=== PATIENT | female | born 1965 | race American Indian/Alaskan Native ===

== ENCOUNTER 2017-05-04 23:17 | Emergency (ER) | payer MEDICAID, OTHER ==
[2017-05-05 01:15] LABS: CHLORIDE,CL 102 mmol/L (101-111); SODIUM,NA 135 mmol/L (135-145)
--- NOTE | 2017-05-05 01:31 | EDM.PDOC ---
ED HPI GENERAL MEDICAL PROBLEM - General Chief Complaint: General Stated Complaint: HURTING ALL OVER, SWOLLEN FACE/LEGS, WEAK Time Seen by Provider: 05/04/17 23:35 Source of Information: Reports: Patient History Limitations: Reports: No Limitations - History of Present Illness INITIAL COMMENTS - FREE TEXT/NARRATIVE: c/o generalized aches, swelling to face and lower extremities for past weeks. Was seen in clinic today for similar symptoms "but didn't do anything". Aleve changed to Naproxyn. Taking oxycodone for "female problems". Reported to RN ran out of Neurontin and cannot get refilled until . Right Generalized Pain Score (Numeric/FACES): 5 - Related Data Allergies Allergy/AdvReac Type Severity Reaction Status Date / Time No Known Allergies Allergy Verified 05/04/17 23:34 Home Meds: Home Meds Gabapentin [Neurontin] 600 mg PO TID 11/05/16 [History] Lisinopril [Prinivil] 5 mg PO DAILY 05/04/17 [History] Omeprazole 20 mg PO DAILY 05/04/17 [History] buPROPion [Wellbutrin] 300 mg PO DAILY 05/04/17 [History] oxyCODONE 10 mg PO ASDIRECTED PRN 05/04/17 [History] Past Medical History HEENT History: Reports: None Cardiovascular History: Reports: Hypertension Gastrointestinal History: Reports: GERD Genitourinary History: Reports: UTI, Recurrent MEDICATION COORDINATOR History: Reports: Musculoskeletal History: Reports: None Neurological History: Reports: Migraines Psychiatric History: Reports: Anxiety, Depression, Panic Attack Endocrine/Metabolic History: Reports: None Hematologic History: Reports: None Immunologic History: Reports: None Oncologic (Cancer) History: Reports: None Dermatologic History: Reports: None - Infectious Disease History Infectious Disease History: Reports: Chicken Pox, Hepatitis A Other Infectious Disease History: exposure to Hep C - Past Surgical History GI Surgical History: Reports: Cholecystectomy Female Surgical History: Reports: Section, Tubal Ligation Social & Family History - Family History Family Medical History: Noncontributory - Tobacco Use Smoking Status *Q: Current Every Day Smoker Years of Tobacco use: 15 Packs/Tins Daily: 0.5 - Caffeine Use Caffeine Use: Reports: Soda - Recreational Drug Use Recreational Drug Use: Yes Drug Use in Last 12 Months: Yes Recreational Drug Type: Reports: Marijuana/Hashish ED ROS GENERAL - Review of Systems Review Of Systems: See Below Constitutional: Reports: Malaise HEENT: Reports: No Symptoms Respiratory: Reports: No Symptoms Cardiovascular: Reports: Edema (face and legs, notes no change in how ring fits on finger.) Endocrine: Reports: No Symptoms GI/Abdominal: Reports: No Symptoms : Reports: Other (IUD for heavy bleeding, continues regular spotting, Previous anemia related to heavy periods. Prior CT noted uterine fibroid) Musculoskeletal: Reports: Other (generalized aches) Skin: Reports: No Symptoms Neurological: Reports: No Symptoms Psychiatric: Reports: No Symptoms ED EXAM, GENERAL - Physical Exam Exam: See Below Exam Limited By: No Limitations General Appearance: Alert, No Apparent Distress Eye Exam: Bilateral Eye: PERRL Ears: Normal External Exam, Normal TMs Nose: Other (nasal congestion) Neck: Normal Inspection, Full Range of Motion. No: Lymphadenopathy (L), Lymphadenopathy (R) Respiratory/Chest: No Respiratory Distress, Lungs Clear, Normal Breath Sounds Cardiovascular: Normal Peripheral Pulses, Regular Rate, Rhythm, No Edema (trace pedal non pitting) GI/Abdominal: Normal Bowel Sounds, Soft, Tender (mild LUQ) Back Exam: Normal Inspection, Full Range of Motion Extremities: Normal Inspection Neurological: Alert, Oriented, Normal Cognition, Normal Gait Skin Exam: Warm, Dry, Intact, Pallor Course - Vital Signs Last Recorded V/S: Last Vital Signs Temp 97 F 05/05/17 01:40 Pulse 59 L 05/05/17 01:40 Resp 14 05/05/17 01:40 BP 115/62 05/05/17 01:40 Pulse Ox 100 05/05/17 01:40 - Orders/Labs/Meds Labs: Laboratory Tests 05/05/17 05/05/17 05/05/17 Range/Units 00:01 00:01 00:48 WBC 4.9 L (5.0-10.0) 10^3/uL RBC 3.85 L (4.2-5.4) 10^6/uL Hgb 11.4 L (12.0-16.0) g/dL Hct 34.6 L (37.0-47.0) % MCV 89.9 (80-100) fL MCH 29.6 (27.0-34.0) pg MCHC 32.9 L (33.0-35.0) g/dL Plt Count 170 (150-450) 10^3/uL Neut % (Auto) 46.0 (42.2-75.2) % Lymph % (Auto) 41.1 (20.5-50.1) % [place] % (Auto) 8.8 H (2-8) % Eos % (Auto) 3.7 H (1.0-3.0) % Baso % (Auto) 0.4 (0.0-1.0) % Sodium (135-145) mmol/L Potassium (3.6-5.0) mmol/L Chloride (101-111) mmol/L Carbon Dioxide (21.0-31.0) mmol/L Anion Gap BUN (7-18) mg/dL Creatinine (0.6-1.3) mg/dL Est Cr Clr Drug Dosing mL/min Estimated GFR (MDRD) BUN/Creatinine Ratio Glucose (74-105) mg/dL Calcium (8.4-10.2) mg/dl Total Bilirubin (0.2-1.0) mg/dL AST (10-42) IU/L ALT (10-60) IU/L Alkaline Phosphatase (42-121) IU/L Ammonia (11-35) umol/L B-Natriuretic Peptide (0-100) pg/ml Total Protein (6.7-8.2) g/dl Albumin (3.2-5.5) g/dl Globulin Albumin/Globulin Ratio Amylase (28-100) U/L Lipase (22-51) U/L Urine Color Yellow (YELLOW) Urine Appearance Slightly cloudy (CLEAR) Urine pH 7.0 (5.0-9.0) Ur Specific [place] 1.010 (1.005-1.030) Urine Protein Negative (NEGATIVE) Urine Glucose (UA) Negative (NEGATIVE) Urine Ketones Negative (NEGATIVE) Urine Occult Blood Negative (NEGATIVE) Urine Nitrite Negative (NEGATIVE) Urine Bilirubin Negative (NEGATIVE) Urine Urobilinogen 0.2 (0.2-1.0) mg/dL Ur Leukocyte Esterase Negative (NEGATIVE) Urine RBC Not seen /HPF Urine WBC Not seen (0-5/HPF) /HPF Ur Epithelial Cells Few /HPF Urine Bacteria Rare (0-FEW/HPF) /HPF Urine Opiates Screen Negative (NEGATIVE) Ur Oxycodone Screen Positive H (NEGATIVE) Urine Methadone Screen Negative (NEGATIVE) Ur Barbiturates Screen Negative (NEGATIVE) U Tricyclic Antidepress Negative (NEGATIVE) Ur Phencyclidine Scrn Negative (NEGATIVE) Ur Amphetamine Screen Negative (NEGATIVE) U Methamphetamines Scrn Negative (NEGATIVE) Urine MDMA Screen Negative (NEGATIVE) U Benzodiazepines Scrn Negative (NEGATIVE) Urine Cocaine Screen Negative (NEGATIVE) U Marijuana (THC) Screen Positive H (NEGATIVE) 05/05/17 05/05/17 Range/Units 00:48 00:48 WBC (5.0-10.0) 10^3/uL RBC (4.2-5.4) 10^6/uL Hgb (12.0-16.0) g/dL Hct (37.0-47.0) % MCV (80-100) fL MCH (27.0-34.0) pg MCHC (33.0-35.0) g/dL Plt Count (150-450) 10^3/uL Neut % (Auto) (42.2-75.2) % Lymph % (Auto) (20.5-50.1) % [place] % (Auto) (2-8) % Eos % (Auto) (1.0-3.0) % Baso % (Auto) (0.0-1.0) % Sodium 135 (135-145) mmol/L Potassium 4.5 (3.6-5.0) mmol/L Chloride 102 (101-111) mmol/L Carbon Dioxide 26.0 (21.0-31.0) mmol/L Anion Gap 11.5 BUN 11 (7-18) mg/dL Creatinine 0.7 (0.6-1.3) mg/dL Est Cr Clr Drug Dosing 85.56 mL/min Estimated GFR (MDRD) > 60 BUN/Creatinine Ratio 15.71 Glucose 101 (74-105) mg/dL Calcium 9.5 (8.4-10.2) mg/dl Total Bilirubin 0.4 (0.2-1.0) mg/dL AST 33 (10-42) IU/L ALT 36 (10-60) IU/L Alkaline Phosphatase 48 (42-121) IU/L Ammonia 16 (11-35) umol/L B-Natriuretic Peptide 66 (0-100) pg/ml Total Protein 6.1 L (6.7-8.2) g/dl Albumin 3.4 (3.2-5.5) g/dl Globulin 2.7 Albumin/Globulin Ratio 1.26 Amylase 70 (28-100) U/L Lipase 26 (22-51) U/L Urine Color (YELLOW) Urine Appearance (CLEAR) Urine pH (5.0-9.0) Ur Specific [place] (1.005-1.030) Urine Protein (NEGATIVE) Urine Glucose (UA) (NEGATIVE) Urine Ketones (NEGATIVE) Urine Occult Blood (NEGATIVE) Urine Nitrite (NEGATIVE) Urine Bilirubin (NEGATIVE) Urine Urobilinogen (0.2-1.0) mg/dL Ur Leukocyte Esterase (NEGATIVE) Urine RBC /HPF Urine WBC (0-5/HPF) /HPF Ur Epithelial Cells /HPF Urine Bacteria (0-FEW/HPF) /HPF Urine Opiates Screen (NEGATIVE) Ur Oxycodone Screen (NEGATIVE) Urine Methadone Screen (NEGATIVE) Ur Barbiturates Screen (NEGATIVE) U Tricyclic Antidepress (NEGATIVE) Ur Phencyclidine Scrn (NEGATIVE) Ur Amphetamine Screen (NEGATIVE) U Methamphetamines Scrn (NEGATIVE) Urine MDMA Screen (NEGATIVE) U Benzodiazepines Scrn (NEGATIVE) Urine Cocaine Screen (NEGATIVE) U Marijuana (THC) Screen (NEGATIVE) Departure - Departure Time of Disposition: 01:24 Disposition: Home, Self-Care 01 Condition: Fair Clinical Impression: Malaise Chronic pain Qualifiers: Chronic pain type: chronic pain syndrome Qualified Code(s): G89.4 - Chronic pain syndrome - Discharge Information Instructions: Peripheral Edema Referrals: PCP,Unobtain [Primary Care Provider] - Forms: ED Department Discharge Additional Instructions: may use tylenol 650mg every 4-6 hours as needed for pain limit salt in diet, follow up with primary care if symptoms not improving
[2017-05-05 01:41] VITALS: BP 115/62
== END 2017-05-05 01:51 | disposition home or self-care (01) ==
LOC: DL.ED 23:17
DX: G89.4 Chronic pain syndrome (principal); R53.81 Other malaise; I10 Essential (primary) hypertension; K21.9 Gastro-esophageal reflux disease without esophagitis; G43.909 Migraine, unspecified, not intractable, without status migrainosus; F41.0 Panic disorder [episodic paroxysmal anxiety]; F32.9 Major depressive disorder, single episode, unspecified; Z90.49 Acquired absence of other specified parts of digestive tract; Z98.51 Tubal ligation status; F17.210 Nicotine dependence, cigarettes, uncomplicated; Z79.899 Other long term (current) drug therapy; Z87.440 Personal history of urinary (tract) infections
CPT/HCPCS: 36415; 80053; 80305; 81001; 82140; 82150; 83690; 83880; 85025; 99283

== ENCOUNTER 2017-07-17 08:43 | Emergency (ER) | payer OTHER ==
--- NOTE | 2017-07-17 09:12 | EDM.PDOC ---
ED HPI GENERAL MEDICAL PROBLEM - General Chief Complaint: Back Pain or Injury Stated Complaint: [id number] BACK NECK Time Seen by Provider: 07/17/17 09:11 Source of Information: Reports: Patient, Family, Old Records, RN, RN Notes Reviewed History Limitations: Reports: Other (pt not forcoming with the details of her history) - History of Present Illness INITIAL COMMENTS - FREE TEXT/NARRATIVE: Patient arrives by POV with complaint of chronic neck and back pain which flared up for no apparent reason 3 days ago. She states that she has not had this evaluated for "quite some time", however records indicate that patient was seen in [facility] ER 2 days ago. [facility] records indicate that patient presented there for chronic back pain with right flank pain which radiated to the upper lateral right leg. She denied injury at that time as well. At that time she had CBC with WBC of 15.42, random blood glucose of 113 and urine drug screen positive for cannabis. CT abdomen and pelvis was obtained which was interpreted as normal. Patient received Toradol 30mg IVP, Zofran 4 mg IVP, and Dilaudid 1mg IVP times 2, She was discharged with prescriptions of Lidocaine ointment 5% and cyclobenzoprine 10mg. She was discharged with the diagnosis of acute right lower back pain [facility] and provided a note that patient is a chronic opiate pain patient. Clinical records obtained indicate that patient breeched her pain contract with Dr. Dye and he is discharged her from his practice in July 2015. Patient states that she follows with a CHILD CARE GIVER doctor in [place] who prescribes her oxycodone for chronic pelvis pain. Onset: Today Location: Reports: Neck, Back Quality: Reports: Ache, Stabbing Severity: Severe Improves with: Reports: None Worsens with: Reports: None Associated Symptoms: Reports: No Other Symptoms - Related Data Allergies Allergy/AdvReac Type Severity Reaction Status Date / Time No Known Allergies Allergy Verified 05/04/17 23:34 Home Meds: Home Meds Gabapentin [Neurontin] 600 mg PO TID 11/05/16 [History] Lisinopril [Prinivil] 5 mg PO DAILY 05/04/17 [History] Omeprazole 20 mg PO DAILY 05/04/17 [History] buPROPion [Wellbutrin] 300 mg PO DAILY 05/04/17 [History] oxyCODONE 10 mg PO ASDIRECTED PRN 05/04/17 [History] Past Medical History HEENT History: Reports: None Cardiovascular History: Reports: Hypertension Gastrointestinal History: Reports: GERD, Hepatitis (Viral hepatitis A) Genitourinary History: Reports: UTI, Recurrent CHILD CARE GIVER 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: 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: Musculoskeletal History: Reports: None Neurological History: Reports: Migraines Psychiatric History: Reports: Anxiety, Depression, Panic Attack Endocrine/Metabolic History: Reports: None, Other (See Below) (thyroid disorder) Hematologic History: Reports: None Immunologic History: Reports: None Oncologic (Cancer) History: Reports: None Dermatologic History: Reports: None - Infectious Disease History Infectious Disease History: Reports: Chicken Pox, Hepatitis A Other Infectious Disease History: exposure to Hep C - Past Surgical History GI Surgical History: Reports: Cholecystectomy Female Surgical History: Reports: Section, Tubal Ligation, Other ( See Below) (D&C) Neurological Surgical History: Reports: Other (See Below) (back surgery) Social & Family History - Family History Family Medical History: Noncontributory - Tobacco Use Smoking Status *Q: Current Every Day Smoker Years of Tobacco use: 15 Packs/Tins Daily: 0.5 - Caffeine Use Caffeine Use: Reports: Soda - Recreational Drug Use Recreational Drug Use: Yes Drug Use in Last 12 Months: Yes Recreational Drug Type: Reports: Marijuana/Hashish ED ROS GENERAL - Review of Systems Review Of Systems: ROS reveals no pertinent complaints other than HPI. ED EXAM, GENERAL - Physical Exam Exam: See Below Exam Limited By: No Limitations General Appearance: Other (well appearing, distressed with neck and back pain.) Eye Exam: Bilateral Eye: Normal Inspection Ears: Normal External Exam, Normal Canal, Hearing Grossly Normal, Normal TMs Nose: Normal Inspection, Normal Mucosa, No Blood Throat/Mouth: Normal Inspection, Normal Lips, Normal Teeth, Normal Gums, Normal Oropharynx, Normal Voice, No Airway Compromise Head: Atraumatic, Normocephalic Neck: Full Range of Motion, Other (no nuchal rigidity. Bilateral paraspinal soft tissue tenderness with mild muscle spasm.) Respiratory/Chest: No Respiratory Distress, Lungs Clear, Normal Breath Sounds, No Accessory Muscle Use, Chest Non-Tender GI/Abdominal: Normal Bowel Sounds, Soft, Non-Tender, No Organomegaly, No Distention, No Abnormal Bruit, No Mass (Female) Exam: Deferred Rectal (Female) Exam: Deferred Back Exam: Other (Fill ROM of T and L spine. No swelling, bruising or erythema. Lower lumbar tenderness at LS junction.) Extremities: Normal Inspection, Normal Range of Motion, Non-Tender, Normal Capillary Refill, No Pedal Edema Neurological: Alert, Oriented, CN II-XII Intact, Normal Cognition, Normal Gait, Normal Reflexes, No Motor/Sensory Deficits Psychiatric: Anxious, Other (tearful) Skin Exam: Warm, Dry, Intact, Normal Color, No Rash Course - Vital Signs Last Recorded V/S: See nurses notes for vitals. - Orders/Labs/Meds Orders: Active Orders 24 hr Category Date Time Status Peripheral IV Care [RC] . DIRECTED Care 07/17/17 09:25 Active Cervical Spine 2V or 3V [CR] Urgent Exams 07/17/17 09:25 Taken Lumbar Spine 2 or 3V [CR] Urgent Exams 07/17/17 09:25 Taken Sodium Chloride 0.9% [Saline Flush] Med 07/17/17 09:25 Active 10 ml FLUSH ASDIRECTED PRN Peripheral IV Insertion Adult [OM.PC] Stat Oth 07/17/17 09:25 Ordered Medication Orders Sodium Chloride (Saline Flush) 10 ml FLUSH ASDIRECTED PRN PRN Reason: Keep Vein Open Labs: Laboratory Tests 07/17/17 07/17/17 07/17/17 Range/Units 09:33 09:33 09:49 WBC 14.5 H (5.0-10.0) 10^3/uL RBC 4.26 (4.2-5.4) 10^6/uL Hgb 12.7 (12.0-16.0) g/dL Hct 38.0 (37.0-47.0) % MCV 89.2 (80-100) fL MCH 29.8 (27.0-34.0) pg MCHC 33.4 (33.0-35.0) g/dL Plt Count 170 (150-450) 10^3/uL Neut % (Auto) 91.5 H (42.2-75.2) % Lymph % (Auto) 4.3 L (20.5-50.1) % [place] % (Auto) 3.8 (2-8) % Eos % (Auto) 0.3 L (1.0-3.0) % Baso % (Auto) 0.1 (0.0-1.0) % Sodium (135-145) mmol/L Potassium (3.6-5.0) mmol/L Chloride (101-111) mmol/L Carbon Dioxide (21.0-31.0) mmol/L Anion Gap BUN (7-18) mg/dL Creatinine (0.6-1.3) mg/dL Est Cr Clr Drug Dosing Estimated GFR (MDRD) BUN/Creatinine Ratio Glucose (74-105) mg/dL Calcium (8.4-10.2) mg/dl Total Bilirubin (0.2-1.0) mg/dL AST (10-42) IU/L ALT (10-60) IU/L Alkaline Phosphatase (42-121) IU/L C-Reactive Protein (0.0-1.3) mg/dL Total Protein (6.7-8.2) g/dl Albumin (3.2-5.5) g/dl Globulin Albumin/Globulin Ratio Urine Color Yellow (YELLOW) Urine Appearance Slightly cloudy (CLEAR) Urine pH 6.0 (5.0-9.0) Ur Specific [place] 1.020 (1.005-1.030) Urine Protein 30 H (NEGATIVE) Urine Glucose (UA) 500 H (NEGATIVE) Urine Ketones Negative (NEGATIVE) Urine Occult Blood Trace-intact H (NEGATIVE) Urine Nitrite Negative (NEGATIVE) Urine Bilirubin Negative (NEGATIVE) Urine Urobilinogen 0.2 (0.2-1.0) mg/dL Ur Leukocyte Esterase Negative (NEGATIVE) Urine RBC 0-5 /HPF Urine WBC 0-5 (0-5/HPF) /HPF Ur Epithelial Cells Moderate H /HPF Amorphous Sediment Rare (0/HPF) /HPF Urine Bacteria Few (0-FEW/HPF) /HPF Urine Mucus Rare /LPF Urine Opiates Screen Negative (NEGATIVE) Ur Oxycodone Screen Positive H (NEGATIVE) Urine Methadone Screen Negative (NEGATIVE) Ur Barbiturates Screen Negative (NEGATIVE) U Tricyclic Antidepress Negative (NEGATIVE) Ur Phencyclidine Scrn Negative (NEGATIVE) Ur Amphetamine Screen Negative (NEGATIVE) U Methamphetamines Scrn Negative (NEGATIVE) Urine MDMA Screen Negative (NEGATIVE) U Benzodiazepines Scrn Negative (NEGATIVE) Urine Cocaine Screen Negative (NEGATIVE) U Marijuana (THC) Screen Positive H (NEGATIVE) 07/17/17 07/17/17 Range/Units 09:49 09:49 WBC (5.0-10.0) 10^3/uL RBC (4.2-5.4) 10^6/uL Hgb (12.0-16.0) g/dL Hct (37.0-47.0) % MCV (80-100) fL MCH (27.0-34.0) pg MCHC (33.0-35.0) g/dL Plt Count (150-450) 10^3/uL Neut % (Auto) (42.2-75.2) % Lymph % (Auto) (20.5-50.1) % [place] % (Auto) (2-8) % Eos % (Auto) (1.0-3.0) % Baso % (Auto) (0.0-1.0) % Sodium 138 (135-145) mmol/L Potassium 3.6 (3.6-5.0) mmol/L Chloride 105 (101-111) mmol/L Carbon Dioxide 23.0 (21.0-31.0) mmol/L Anion Gap 13.6 BUN 13 (7-18) mg/dL Creatinine 0.9 (0.6-1.3) mg/dL Est Cr Clr Drug Dosing TNP Estimated GFR (MDRD) > 60 BUN/Creatinine Ratio 14.44 Glucose 100 (74-105) mg/dL Calcium 9.6 (8.4-10.2) mg/dl Total Bilirubin 0.8 (0.2-1.0) mg/dL AST 30 (10-42) IU/L ALT 39 (10-60) IU/L Alkaline Phosphatase 100 (42-121) IU/L C-Reactive Protein > 20.0 H (0.0-1.3) mg/dL Total Protein 7.2 (6.7-8.2) g/dl Albumin 3.4 (3.2-5.5) g/dl Globulin 3.8 Albumin/Globulin Ratio 0.89 Urine Color (YELLOW) Urine Appearance (CLEAR) Urine pH (5.0-9.0) Ur Specific [place] (1.005-1.030) Urine Protein (NEGATIVE) Urine Glucose (UA) (NEGATIVE) Urine Ketones (NEGATIVE) Urine Occult Blood (NEGATIVE) Urine Nitrite (NEGATIVE) Urine Bilirubin (NEGATIVE) Urine Urobilinogen (0.2-1.0) mg/dL Ur Leukocyte Esterase (NEGATIVE) Urine RBC /HPF Urine WBC (0-5/HPF) /HPF Ur Epithelial Cells /HPF Amorphous Sediment (0/HPF) /HPF Urine Bacteria (0-FEW/HPF) /HPF Urine Mucus /LPF Urine Opiates Screen (NEGATIVE) Ur Oxycodone Screen (NEGATIVE) Urine Methadone Screen (NEGATIVE) Ur Barbiturates Screen (NEGATIVE) U Tricyclic Antidepress (NEGATIVE) Ur Phencyclidine Scrn (NEGATIVE) Ur Amphetamine Screen (NEGATIVE) U Methamphetamines Scrn (NEGATIVE) Urine MDMA Screen (NEGATIVE) U Benzodiazepines Scrn (NEGATIVE) Urine Cocaine Screen (NEGATIVE) U Marijuana (THC) Screen (NEGATIVE) Meds: Medications Generic Name Dose Route Start Last Admin Trade Name Freq PRN Reason Stop Dose Admin Sodium Chloride 10 ml 07/17/17 09:25 Saline Flush FLUSH ASDIRECTED PRN Keep Vein Open Discontinued Medications Generic Name Dose Route Start Last Admin Trade Name Freq PRN Reason Stop Dose Admin Cyclobenzaprine HCl 10 mg 07/17/17 09:41 07/17/17 10:12 Flexeril PO 07/17/17 09:42 10 mg ONETIME ONE Administration Hydromorphone HCl 1 mg 07/17/17 10:52 07/17/17 10:59 Dilaudid IM 07/17/17 10:53 1 mg ONETIME ONE Administration Ketorolac Tromethamine 30 mg 07/17/17 09:39 Toradol IVPUSH 07/17/17 09:40 ONETIME ONE Ketorolac Tromethamine 60 mg 07/17/17 09:56 07/17/17 10:12 Toradol IM 07/17/17 09:57 60 mg ONETIME ONE Administration Ondansetron HCl 4 mg 07/17/17 09:39 Zofran IV 07/17/17 09:40 ONETIME ONE Ondansetron HCl 4 mg 07/17/17 09:56 07/17/17 10:12 Zofran Odt PO 07/17/17 09:57 4 mg ONETIME ONE Administration - Radiology Interpretation Free Text/Narrative:: X-ray C spine: Intervertebral disc space narrowing at C5/C6 may represent degenerative disc disease. See rad report. X-ray lumbosacral spine: Intervertebral disc space narrowing L5/S1 consistent with degenerative disc disease. See rad report. Departure - Departure Time of Disposition: 10:53 Disposition: Home, Self-Care 01 Condition: Fair Clinical Impression: Neck pain, Degenerative disc disease at L5-S1 level, Chronic pain disorder - Discharge Information Instructions: Back Pain, Adult, [id number], Chronic Back Pain Forms: ED Department Discharge Additional Instructions: Rx: Flexeril 10mg Rx: Decadron 4mg Rx: Diclofenac DR 75mg Alternate moist hot packs and ice packs to areas of pain. Follow up in clinic with your doctor next week for pain management.b White blood cell count was slightly elevated today and elevated at previously visits to [facility]. This needs to be evaluated by a clinic doctor this week. - My Orders Last 24 Hours: My Active Orders 07/17/17 09:25 Peripheral IV Care [RC] . DIRECTED Cervical Spine 2V or 3V [CR] Urgent Lumbar Spine 2 or 3V [CR] Urgent Sodium Chloride 0.9% [Saline Flush] 10 ml FLUSH ASDIRECTED PRN Peripheral IV Insertion Adult [OM.PC] Stat - Assessment/Plan Last 24 Hours: My Active Orders 07/17/17 09:25 Peripheral IV Care [RC] . DIRECTED Cervical Spine 2V or 3V [CR] Urgent Lumbar Spine 2 or 3V [CR] Urgent Sodium Chloride 0.9% [Saline Flush] 10 ml FLUSH ASDIRECTED PRN Peripheral IV Insertion Adult [OM.PC] Stat
[2017-07-17] MEDS ORDERED: Sodium Chloride 0.9% 10 ML Syringe FLUSH PRN (09:25)
[2017-07-17] MEDS ORDERED: Ondansetron 4 MG/2 ML SDV IV ONE (09:39)
[2017-07-17] MEDS ORDERED: Ketorolac 30 MG/ML SDV IVPUSH ONE (09:39)
[2017-07-17] MEDS ORDERED: Cyclobenzaprine 10 MG Tab PO ONE (09:41)
[2017-07-17] MEDS ORDERED: Ondansetron 4 MG Tab.DIS PO ONE (09:56)
[2017-07-17] MEDS ORDERED: Ketorolac 30 MG/ML SDV IM ONE (09:56)
[2017-07-17] MEDS ORDERED: HYDROmorphone 1 MG/ML Syringe IM ONE (10:52)
[2017-07-17 10:57] LABS: CHLORIDE,CL 105 mmol/L (101-111); SODIUM,NA 138 mmol/L (135-145)
[2017-07-17 11:25] VITALS: BP 156/98
== END 2017-07-17 11:45 | disposition home or self-care (01) ==
LOC: DL.ED 08:43
DX: G89.29 Other chronic pain (principal); M54.2 Cervicalgia; M51.37 Other intervertebral disc degeneration, lumbosacral region; I10 Essential (primary) hypertension; K21.9 Gastro-esophageal reflux disease without esophagitis; F41.0 Panic disorder [episodic paroxysmal anxiety]; F32.9 Major depressive disorder, single episode, unspecified; F17.210 Nicotine dependence, cigarettes, uncomplicated; Z98.890 Other specified postprocedural states; Z90.49 Acquired absence of other specified parts of digestive tract; Z98.51 Tubal ligation status; Z79.899 Other long term (current) drug therapy; Z87.440 Personal history of urinary (tract) infections
CPT/HCPCS: 36415; 72040; 72100; 80053; 80305; 81001; 85025; 86140; 96372; 99284; A9270; J1170; J1885

== ENCOUNTER 2017-07-17 15:46 | Emergency (ER) | payer OTHER ==
[2017-07-17] MEDS ORDERED: HYDROmorphone 1 MG/ML Syringe IVPUSH ONE (16:22)
[2017-07-17] MEDS ORDERED: Ondansetron 4 MG/2 ML SDV IV ONE (16:22)
--- NOTE | 2017-07-17 17:04 | EDM.PDOC ---
Scribed by Natalia Harris 07/17/17 [id number] for Corwin Lozada MD ED HPI GENERAL MEDICAL PROBLEM - General Chief Complaint: Back Pain or Injury Stated Complaint: BACK PAIN Time Seen by Provider: 07/17/17 16:07 Source of Information: Reports: Patient, RN, RN Notes Reviewed History Limitations: Reports: No Limitations - History of Present Illness INITIAL COMMENTS - FREE TEXT/NARRATIVE: Patient present for the second time today with complaint of neck and severe low back pain and random migraine and joint pains without injury. Patient adamantly states that she is not in opiate withdrawal. She was seen at [facility] on and here earlier today, both visits revealed elevated WBC of 15.2 in [place] and 14.5 today. Patient's CPR was elevated at greater than 20 today. Urine revealed proteinuria, 500 glucose, and trace occult blood. Tox screen was oxycodone and marijuana positive. Location: Reports: Generalized Quality: Reports: Ache Severity: Severe Improves with: Reports: None Worsens with: Reports: None Associated Symptoms: Reports: No Other Symptoms Back Pain Score (Numeric/FACES): 10 - Related Data Allergies Allergy/AdvReac Type Severity Reaction Status Date / Time No Known Allergies Allergy Verified 07/17/17 11:25 Home Meds: Home Meds . 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: Musculoskeletal History: Reports: None Neurological History: Reports: Migraines Psychiatric History: Reports: Anxiety, Depression, Panic Attack Endocrine/Metabolic History: Reports: None, Other (See Below) Hematologic History: Reports: None Immunologic History: Reports: None Oncologic (Cancer) History: Reports: None Dermatologic History: Reports: None - Infectious Disease History Infectious Disease History: Reports: Chicken Pox, Hepatitis A Other Infectious Disease History: exposure to Hep C - Past Surgical History GI Surgical History: Reports: Cholecystectomy Female Surgical History: Reports: Section, Tubal Ligation, Other ( See Below) Neurological Surgical History: Reports: Other (See Below) Social & Family History - Family History Family Medical History: Noncontributory - Tobacco Use Smoking Status *Q: Current Every Day Smoker Years of Tobacco use: 15 Packs/Tins Daily: 0.5 - Caffeine Use Caffeine Use: Reports: Soda - Recreational Drug Use Recreational Drug Use: Yes Drug Use in Last 12 Months: Yes Recreational Drug Type: Reports: Marijuana/Hashish ED ROS GENERAL - Review of Systems Review Of Systems: ROS reveals no pertinent complaints other than HPI. ED EXAM,LOWER BACK PAIN/INJURY - Physical Exam Exam: See Below Exam Limited By: No Limitations General Appearance: Other (arriving and screaming.) Eye Exam: Bilateral Eye: Normal Inspection Ears: Normal External Exam, Normal Canal, Hearing Grossly Normal, Normal TMs Nose: Normal Inspection, Normal Mucosa, No Blood Throat/Mouth: Normal Inspection, Normal Lips, Normal Teeth, Normal Gums, Normal Oropharynx, Normal Voice, No Airway Compromise Head: Atraumatic, Normocephalic Neck: Full Range of Motion, Other (No nuchal rigidity. Bilateral paraspinal soft tissue tenderness with mild muscle spasms.) Respiratory/Chest: No Respiratory Distress Cardiovascular: Normal Peripheral Pulses, Regular Rate, Rhythm, No Edema, No Gallop, No JVD, No Murmur, No Rub GI/Abdominal: Normal Bowel Sounds, Soft, Non-Tender, No Organomegaly, No Distention, No Abnormal Bruit, No Mass (Female) Exam: Deferred Rectal (Female) Exam: Deferred Back Exam: Full Range of Motion (of T and L spnes. No swelling, bruising or erythema. Lower lumbar tenderness at LS junction.) Extremities: Normal Inspection, Normal Range of Motion, Non-Tender, No Pedal Edema, Normal Capillary Refill Neurological: Alert, Normal Mood/Affect, Normal Dorsiflexion, CN II-XII Intact, Normal Plantar Flexion, Normal Gait, Normal Reflexes, No Motor/Sensory Deficits , Oriented x 3 Psychiatric: Anxious, Other (tearful) Skin Exam: Warm, Dry, Intact, Normal Color, No Rash Course - Vital Signs Last Recorded V/S: Last Vital Signs Temp 35.3 C 07/17/17 16:04 Pulse 112 H 07/17/17 16:04 Resp 18 07/17/17 16:04 BP 126/84 07/17/17 16:04 Pulse Ox 96 07/17/17 16:04 - Orders/Labs/Meds Meds: Medications Discontinued Medications Generic Name Dose Route Start Last Admin Trade Name Freq PRN Reason Stop Dose Admin Hydromorphone HCl 1 mg 07/17/17 16:22 07/17/17 16:40 Dilaudid IVPUSH 07/17/17 16:23 1 mg ONETIME ONE Administration Ondansetron HCl 4 mg 07/17/17 16:22 07/17/17 16:40 Zofran IV 07/17/17 16:23 4 mg ONETIME ONE Administration Departure - Departure Time of Disposition: 16:31 Disposition: DC/Tfer to Acute Hospital 02 Condition: Fair Clinical Impression: Intractable low back pain, Neck pain, Microscopic hematuria Leukocytosis Qualifiers: Leukocytosis type: unspecified Qualified Code(s): D72.829 - Elevated white blood cell count, unspecified - Discharge Information Forms: ED Department Discharge, Interfacility Transfer EMTALA I have read and agree with the documentation that has been completed regarding this visit. By signing this record, I attest that the documentation was completed in my physical presence and is an accurate record of the encounter.
[2017-07-17 17:10] VITALS: BP 105/57
== END 2017-07-17 17:25 ==
LOC: DL.ED 15:46
DX: M54.5 Low back pain (principal); M54.2 Cervicalgia; R31.29 Other microscopic hematuria; D72.829 Elevated white blood cell count, unspecified; I10 Essential (primary) hypertension; K21.9 Gastro-esophageal reflux disease without esophagitis; F41.0 Panic disorder [episodic paroxysmal anxiety]; F17.210 Nicotine dependence, cigarettes, uncomplicated; F32.9 Major depressive disorder, single episode, unspecified; Z87.440 Personal history of urinary (tract) infections; Z90.49 Acquired absence of other specified parts of digestive tract; Z98.51 Tubal ligation status
CPT/HCPCS: 96374; 96375; 99284; J1170; J2405

== ENCOUNTER 2019-11-27 13:04 | Emergency (ER) | payer OTHER ==
[2019-11-27 13:32] VITALS: BP 142/79; PULSE 52
== END 2019-11-27 13:50 | disposition left against medical advice (07) ==
LOC: DL.ED 13:04
DX: Z53.21 Procedure and treatment not carried out due to patient leaving prior to being seen by health care provider (principal)

== ENCOUNTER 2020-08-26 19:08 | Emergency (ER) | payer MEDICAID, OTHER ==
[2020-08-26 19:30] VITALS: BP 148/103; PULSE 85
[2020-08-26 20:25] LABS: ANION GAP 13.2 mEq/L (7-13); CHLORIDE,CL 107 mmol/L (98-107); SODIUM,NA 145 mmol/L (136-145)
[2020-08-26] MEDS ORDERED: Ketorolac 30 MG/ML SDV IM ONE (21:09)
--- NOTE | 2020-08-26 21:42 | EDM.PDOC ---
ED HPI GENERAL MEDICAL PROBLEM - General Chief Complaint: Flank Pain Stated Complaint: BACK HURTS, MIGHT BE KIDNEYS Time Seen by Provider: 08/26/20 19:30 Source of Information: Reports: Patient, RN History Limitations: Reports: No Limitations - History of Present Illness INITIAL COMMENTS - FREE TEXT/NARRATIVE: ED with c/o left low back flank pain, Hx of kidney infections in past, Denies fever, some chills. No COVID exposure. No change in body aches, No nausea or vomiting. No urinary sx. Ambulates with walker, - residual effects from meningitis. 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 Psychiatric History: Reports: Anxiety, Depression, Panic Attack Endocrine/Metabolic History: Reports: None Hematologic History: Reports: None Immunologic History: Reports: None Oncologic (Cancer) History: Reports: None Dermatologic History: Reports: None - Infectious Disease History Infectious Disease History: Reports: Chicken Pox, Hepatitis A, Meningitis Other Infectious Disease History: exposure to Hep C - Past Surgical History HEENT Surgical History: Reports: None Cardiovascular Surgical History: Reports: None Respiratory Surgical History: Reports: None GI Surgical History: Reports: Cholecystectomy Female Surgical History: Reports: Section, Tubal Ligation Social & Family History - Family History Family Medical History: Noncontributory - Tobacco Use Smoking Status *Q: Never Smoker - Caffeine Use Caffeine Use: Reports: None - Recreational Drug Use Recreational Drug Use: No ED ROS GENERAL - Review of Systems Review Of Systems: Comprehensive ROS is negative, except as noted in HPI. ED EXAM,LOWER BACK PAIN/INJURY - Physical Exam Exam: See Below Exam Limited By: No Limitations General Appearance: Alert, Mild Distress, Thin Eye Exam: Bilateral Eye: EOMI Ears: Normal External Exam Nose: Normal Inspection Throat/Mouth: Normal Inspection Head: Atraumatic, Normocephalic Neck: Normal Inspection Respiratory/Chest: No Respiratory Distress, Lungs Clear, Normal Breath Sounds Cardiovascular: Normal Peripheral Pulses, Regular Rate, Rhythm GI/Abdominal: Normal Bowel Sounds Back Exam: Full Range of Motion, Paraspinal Tenderness (left lower, mild left CVA tenderness. ). No: Vertebral Tenderness Extremities: Other (bilateral contractures hnads) Neurological: Oriented x 3, Abnormal Gait (requires walker). No: Tremor, Straight Leg Raise (L), Straight Leg Raise (R) Psychiatric: Normal Affect, Normal Mood Skin Exam: Warm, Dry, Intact, Normal Color Course - Vital Signs Last Recorded V/S: Last Vital Signs Temp 97.6 F 08/26/20 19:21 Pulse 85 08/26/20 19:21 Resp 16 08/26/20 19:21 BP 148/103 H 08/26/20 19:21 Pulse Ox 100 08/26/20 19:21 - Orders/Labs/Meds Orders: Active Orders 24 hr Category Date Time Status CULTURE BLOOD [BC] Stat Lab 08/26/20 19:58 Received Labs: Laboratory Tests 08/26/20 08/26/20 08/26/20 Range/Units 19:45 19:58 19:58 WBC 4.5 L (5.0-10.0) 10^3/uL RBC 4.91 (4.2-5.4) 10^6/uL Hgb 15.4 D (12.0-16.0) g/dL Hct 45.1 (37.0-47.0) % MCV 91.9 (80-100) fL MCH 31.4 (27.0-34.0) pg MCHC 34.1 (33.0-35.0) g/dL Plt Count 228 (150-450) 10^3/uL Neut % (Auto) 49.8 (42.2-75.2) % Lymph % (Auto) 41.5 (20.5-50.1) % [place] % (Auto) 4.9 (2-8) % Eos % (Auto) 3.4 H (1.0-3.0) % Baso % (Auto) 0.4 (0.0-1.0) % Sodium 145 (136-145) mmol/L Potassium 4.2 (3.5-5.1) mmol/L Chloride 107 (98-107) mmol/L Carbon Dioxide 29 (21-32) mmol/L Anion Gap 13.2 H (7-13) mEq/L BUN 9 (7-18) mg/dL Creatinine 0.76 (0.55-1.02) mg/dL Est Cr Clr Drug Dosing 75.26 mL/min Estimated GFR (MDRD) > 60 BUN/Creatinine Ratio 11.8 (No establ ref range) Glucose 97 (74-99) mg/dL Lactic Acid (0.4-2.0) mmol/L Calcium 11.0 H (8.5-10.1) mg/dL Total Bilirubin 0.5 (0.2-1.0) mg/dL AST 32 (15-37) U/L ALT 45 (14-59) U/L Alkaline Phosphatase 124 H (46-116) U/L Total Protein 8.6 H (6.4-8.2) g/dL Albumin 4.5 (3.4-5.0) g/dL Globulin 4.1 Albumin/Globulin Ratio 1.1 Urine Color Yellow (YELLOW) Urine Appearance Clear (CLEAR) Urine pH 7.0 (5.0-9.0) Ur Specific [place] 1.020 (1.005-1.030) Urine Protein Negative (NEGATIVE) Urine Glucose (UA) Negative (NEGATIVE) Urine Ketones Negative (NEGATIVE) Urine Occult Blood Negative (NEGATIVE) Urine Nitrite Negative (NEGATIVE) Urine Bilirubin Negative (NEGATIVE) Urine Urobilinogen 0.2 (0.2-1.0) mg/dL Ur Leukocyte Esterase Negative (NEGATIVE) 08/26/20 Range/Units 19:58 WBC (5.0-10.0) 10^3/uL RBC (4.2-5.4) 10^6/uL Hgb (12.0-16.0) g/dL Hct (37.0-47.0) % MCV (80-100) fL MCH (27.0-34.0) pg MCHC (33.0-35.0) g/dL Plt Count (150-450) 10^3/uL Neut % (Auto) (42.2-75.2) % Lymph % (Auto) (20.5-50.1) % [place] % (Auto) (2-8) % Eos % (Auto) (1.0-3.0) % Baso % (Auto) (0.0-1.0) % Sodium (136-145) mmol/L Potassium (3.5-5.1) mmol/L Chloride (98-107) mmol/L Carbon Dioxide (21-32) mmol/L Anion Gap (7-13) mEq/L BUN (7-18) mg/dL Creatinine (0.55-1.02) mg/dL Est Cr Clr Drug Dosing mL/min Estimated GFR (MDRD) BUN/Creatinine Ratio (No establ ref range) Glucose (74-99) mg/dL Lactic Acid 1.1 (0.4-2.0) mmol/L Calcium (8.5-10.1) mg/dL Total Bilirubin (0.2-1.0) mg/dL AST (15-37) U/L ALT (14-59) U/L Alkaline Phosphatase (46-116) U/L Total Protein (6.4-8.2) g/dL Albumin (3.4-5.0) g/dL Globulin Albumin/Globulin Ratio Urine Color (YELLOW) Urine Appearance (CLEAR) Urine pH (5.0-9.0) Ur Specific [place] (1.005-1.030) Urine Protein (NEGATIVE) Urine Glucose (UA) (NEGATIVE) Urine Ketones (NEGATIVE) Urine Occult Blood (NEGATIVE) Urine Nitrite (NEGATIVE) Urine Bilirubin (NEGATIVE) Urine Urobilinogen (0.2-1.0) mg/dL Ur Leukocyte Esterase (NEGATIVE) Meds: Medications Discontinued Medications Generic Name Dose Route Start Last Admin Trade Name Evelioq PRN Reason Stop Dose Admin Ketorolac Tromethamine 30 mg 08/26/20 21:09 08/26/20 21:14 Toradol IM 08/26/20 21:10 30 mg ONETIME ONE Administration Departure - Departure Time of Disposition: 21:39 Disposition: Home, Self-Care 01 Condition: Good Clinical Impression: Chronic pain Qualifiers: Chronic pain type: chronic pain syndrome Qualified Code(s): G89.4 - Chronic pain syndrome Low back pain Qualifiers: Chronicity: unspecified Back pain laterality: left Sciatica presence: without sciatica Qualified Code(s): M54.5 - Low back pain - Discharge Information *PRESCRIPTION DRUG MONITORING PROGRAM REVIEWED*: No *COPY OF PRESCRIPTION DRUG MONITORING REPORT IN PATIENT SONIYA: No Instructions: Flank Pain, Adult, [id number] Forms: ED Department Discharge Additional Instructions: alternate tylenol 650mg and ibuprofen 600mg every 4-6 hours as needed for discomfort increase fluids follow up with primary care if not improving limit salt in diet get prescriptions that were previously ordered by primary provider filled Sepsis Event Note (ED) - Evaluation Sepsis Screening Result: No Definite Risk - Focused Exam Vital Signs: Vital Signs Temp Pulse Resp BP Pulse Ox 08/26/20 19:21 97.6 F 85 16 148/103 H 100 - My Orders Last 24 Hours: My Active Orders 08/26/20 19:58 CULTURE BLOOD [BC] Stat - Assessment/Plan Last 24 Hours: My Active Orders 08/26/20 19:58 CULTURE BLOOD [BC] Stat
== END 2020-08-26 21:45 | disposition home or self-care (01) ==
LOC: DL.ED 19:08
DX: M54.5 Low back pain (principal); G89.4 Chronic pain syndrome; I10 Essential (primary) hypertension; K21.9 Gastro-esophageal reflux disease without esophagitis
CPT/HCPCS: 36415; 80053; 81003; 83605; 85025; 87040; 96372; 99283; J1885

== ENCOUNTER 2021-02-23 16:10 | Emergency (ER) | payer MEDICAID ==
[2021-02-23] MEDS ORDERED: Lidocaine 2% Viscous Solution 15 ML Cup PO ONE (16:11)
[2021-02-23 16:37] VITALS: BP 126/86; PULSE 85
[2021-02-23 17:58] LABS: ANION GAP 12.9 mEq/L (7-13); CHLORIDE,CL 104 mmol/L (98-107); SODIUM,NA 141 mmol/L (136-145)
--- NOTE | 2021-02-23 18:24 | CR ---
PROCEDURE INFORMATION: Exam: XR Chest Exam date and time: 02/23/2021 6:09 PM Age: 55 years old Clinical indication: Cough; Additional info: Productive cough TECHNIQUE: Imaging protocol: XR of the chest. Views: 2 views. COMPARISON: No relevant prior studies available. FINDINGS: Lungs: Lungs hyperexpanded. No consolidation. Pleural spaces: Unremarkable. No pleural effusion. No pneumothorax. Heart/Mediastinum: Unremarkable. No cardiomegaly. Bones/joints: Thoracolumbar scoliosis. IMPRESSION: COPD. No acute findings
--- NOTE | 2021-02-23 18:45 | EDM.PDOC ---
Scribed by Natalia Harris 02/23/21 [id number] for Lori Lozada MD ED HPI GENERAL MEDICAL PROBLEM - General Chief Complaint: General Stated Complaint: DIFFICULTY BREATHING,FATIGUE,TINGLY,BODY JERKS Time Seen by Provider: 02/23/21 16:38 Source of Information: Reports: Patient, RN, RN Notes Reviewed History Limitations: Reports: No Limitations - History of Present Illness INITIAL COMMENTS - FREE TEXT/NARRATIVE: Patient presents to ED by POV ambulating with use of a walker. Patient has complaint of sores in mouth, cough, disorientated, and body jerks/seizures x1 m onth. Pt states she had meningitis and nearly , was in a coma, then was in a senior care. She states it took nearly three years to regain enough function to be independent. She has an MRI, EEG and neurology follow up coming up in the next few weeks. Pt states these symptoms have been present for over a year, but have slowly worsened. She especially has noticed her breathing has been getting worse. She has smoked for over 35 years but has been trying to cut back. Onset: Gradual Duration: Constant Location: Reports: Generalized Severity: Severe Improves with: Reports: None Worsens with: Reports: None Associated Symptoms: Reports: No Other Symptoms - Related Data Allergies Allergy/AdvReac Type Severity Reaction Status Date / Time No Known Allergies Allergy Verified 02/23/21 16:29 Home Meds: Home Meds Baclofen 30 mg PO QID 08/26/20 [History] Omeprazole 20 mg PO ACBREAKFAST 08/26/20 [History] Gabapentin [Neurontin] 600 mg PO BID 02/23/21 [History] Ibuprofen 600 mg PO ASDIRECTED PRN 02/23/21 [History] Oxybutynin 5 mg PO DAILY 02/23/21 [History] tiZANidine [Zanaflex] 10 mg PO BID 02/23/21 [History] Past Medical History HEENT History: Reports: Impaired Vision Cardiovascular History: Reports: Hypertension Respiratory History: Reports: None Gastrointestinal History: Reports: GERD, Hepatitis Genitourinary History: Reports: UTI, 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 Psychiatric History: Reports: Anxiety, Depression, Panic Attack Endocrine/Metabolic History: Reports: None Hematologic History: Reports: None Immunologic History: Reports: None Oncologic (Cancer) History: Reports: None Dermatologic History: Reports: None - Infectious Disease History Infectious Disease History: Reports: Chicken Pox, Hepatitis A, Meningitis Other Infectious Disease History: exposure to Hep C - Past Surgical History HEENT Surgical History: Reports: None Cardiovascular Surgical History: Reports: None Respiratory Surgical History: Reports: None GI Surgical History: Reports: Cholecystectomy Female Surgical History: Reports: Section, Tubal Ligation Social & Family History - Family History Family Medical History: No Pertinent Family History - Caffeine Use Caffeine Use: Reports: None - Living Situation & Occupation Occupation: Disabled ED ROS GENERAL - Review of Systems Review Of Systems: Comprehensive ROS is negative, except as noted in HPI. ED EXAM, GENERAL - Physical Exam Exam: See Below General Appearance: Alert, No Apparent Distress, Other (Chronically ill appearing) Eye Exam: Bilateral Eye: EOMI, Normal Inspection, PERRL Nose: Normal Inspection, Normal Mucosa, No Blood Throat/Mouth: Normal Inspection, Normal Lips, Normal Teeth, Normal Gums, Normal Oropharynx, Normal Voice, No Airway Compromise Head: Atraumatic, Normocephalic Neck: Normal Inspection, Supple, Non-Tender, Full Range of Motion Respiratory/Chest: No Respiratory Distress, No Accessory Muscle Use, Chest Non- Tender, Decreased Breath Sounds, Wheezing (Mild wheezing, occ. cough) Cardiovascular: Normal Peripheral Pulses, Regular Rate, Rhythm, No Edema, No Murmur GI/Abdominal: Normal Bowel Sounds, Soft, Non-Tender, No Organomegaly, No Distention, No Abnormal Bruit, No Mass Back Exam: Normal Inspection, Full Range of Motion, NT Extremities: Normal Inspection, Normal Range of Motion, Non-Tender, Normal Capillary Refill, No Pedal Edema Neurological: Alert, Oriented, CN II-XII Intact, Normal Cognition, Other (No acute motor or sensory deficits) Psychiatric: Anxious, Flat Affect Skin Exam: Warm, Dry, Intact, Normal Color, No Rash Course - Vital Signs Last Recorded V/S: Last Vital Signs Temp 97.0 F 02/23/21 16:33 Pulse 85 02/23/21 16:33 Resp 18 02/23/21 16:33 BP 126/86 02/23/21 16:33 Pulse Ox 100 02/23/21 16:33 - Orders/Labs/Meds Orders: Active Orders 24 hr Category Date Time Status VITAMIN D 25-HYROXY (D2, D3) [REF] Routine Lab 02/23/21 17:08 Received predniSONE Med 02/23/21 18:51 Once 40 mg PO ONETIME ONE Medication Orders Prednisone (Prednisone 20 Mg Tab) 40 mg PO ONETIME ONE Stop: 02/23/21 18:52 Labs: Laboratory Tests 02/23/21 02/23/21 02/23/21 Range/Units 16:50 16:50 17:08 WBC 6.3 (5.0-10.0) 10^3/uL RBC 4.24 (4.2-5.4) 10^6/uL Hgb 13.3 D (12.0-16.0) g/dL Hct 40.2 (37.0-47.0) % MCV 94.8 (80-100) fL MCH 31.4 (27.0-34.0) pg MCHC 33.1 (33.0-35.0) g/dL Plt Count 230 (150-450) 10^3/uL Neut % (Auto) 50.8 (42.2-75.2) % Lymph % (Auto) 37.4 (20.5-50.1) % [place] % (Auto) 6.1 (2-8) % Eos % (Auto) 5.4 H (1.0-3.0) % Baso % (Auto) 0.3 (0.0-1.0) % Sodium (136-145) mmol/L Potassium (3.5-5.1) mmol/L Chloride (98-107) mmol/L Carbon Dioxide (21-32) mmol/L Anion Gap (7-13) mEq/L BUN (7-18) mg/dL Creatinine (0.55-1.02) mg/dL Est Cr Clr Drug Dosing mL/min Estimated GFR (MDRD) BUN/Creatinine Ratio (No establ ref range) Glucose (70-99) mg/dL Calcium (8.5-10.1) mg/dL Magnesium (1.8-2.4) mg/dL Total Bilirubin (0.2-1.0) mg/dL AST (15-37) U/L ALT (14-59) U/L Alkaline Phosphatase (46-116) U/L C-Reactive Protein (0.0-0.9) mg/dL Total Protein (6.4-8.2) g/dL Albumin (3.4-5.0) g/dL Globulin Albumin/Globulin Ratio Vitamin B12 (193-986) pg/mL TSH, Ultra Sensitive (0.36-3.74) uIU/mL Urine Color Yellow (YELLOW) Urine Appearance Slightly cloudy (CLEAR) Urine pH 7.0 (5.0-9.0) Ur Specific [place] 1.020 (1.005-1.030) Urine Protein Negative (NEGATIVE) Urine Glucose (UA) Negative (NEGATIVE) Urine Ketones Negative (NEGATIVE) Urine Occult Blood Negative (NEGATIVE) Urine Nitrite Negative (NEGATIVE) Urine Bilirubin Negative (NEGATIVE) Urine Urobilinogen 0.2 (0.2-1.0) mg/dL Ur Leukocyte Esterase Negative (NEGATIVE) Urine Opiates Screen Negative (NEGATIVE) Ur Oxycodone Screen Positive H (NEGATIVE) Urine Methadone Screen Negative (NEGATIVE) Ur Barbiturates Screen Negative (NEGATIVE) U Tricyclic Antidepress Negative (NEGATIVE) Ur Phencyclidine Scrn Negative (NEGATIVE) Ur Amphetamine Screen Negative (NEGATIVE) U Methamphetamines Scrn Negative (NEGATIVE) Urine MDMA Screen Negative (NEGATIVE) U Benzodiazepines Scrn Negative (NEGATIVE) Urine Cocaine Screen Negative (NEGATIVE) U Marijuana (THC) Screen Positive H (NEGATIVE) 02/23/21 Range/Units 17:08 WBC (5.0-10.0) 10^3/uL RBC (4.2-5.4) 10^6/uL Hgb (12.0-16.0) g/dL Hct (37.0-47.0) % MCV (80-100) fL MCH (27.0-34.0) pg MCHC (33.0-35.0) g/dL Plt Count (150-450) 10^3/uL Neut % (Auto) (42.2-75.2) % Lymph % (Auto) (20.5-50.1) % [place] % (Auto) (2-8) % Eos % (Auto) (1.0-3.0) % Baso % (Auto) (0.0-1.0) % Sodium 141 (136-145) mmol/L Potassium 4.9 (3.5-5.1) mmol/L Chloride 104 (98-107) mmol/L Carbon Dioxide 29 (21-32) mmol/L Anion Gap 12.9 (7-13) mEq/L BUN 21 H (7-18) mg/dL Creatinine 0.82 (0.55-1.02) mg/dL Est Cr Clr Drug Dosing 69.75 mL/min Estimated GFR (MDRD) > 60 BUN/Creatinine Ratio 25.6 (No establ ref range) Glucose 85 (70-99) mg/dL Calcium 10.0 (8.5-10.1) mg/dL Magnesium 2.4 (1.8-2.4) mg/dL Total Bilirubin 0.6 (0.2-1.0) mg/dL AST 26 (15-37) U/L ALT 44 (14-59) U/L Alkaline Phosphatase 112 (46-116) U/L C-Reactive Protein 0.8 (0.0-0.9) mg/dL Total Protein 7.3 (6.4-8.2) g/dL Albumin 3.6 (3.4-5.0) g/dL Globulin 3.7 Albumin/Globulin Ratio 1.0 Vitamin B12 549 (193-986) pg/mL TSH, Ultra Sensitive 0.37 (0.36-3.74) uIU/mL Urine Color (YELLOW) Urine Appearance (CLEAR) Urine pH (5.0-9.0) Ur Specific [place] (1.005-1.030) Urine Protein (NEGATIVE) Urine Glucose (UA) (NEGATIVE) Urine Ketones (NEGATIVE) Urine Occult Blood (NEGATIVE) Urine Nitrite (NEGATIVE) Urine Bilirubin (NEGATIVE) Urine Urobilinogen (0.2-1.0) mg/dL Ur Leukocyte Esterase (NEGATIVE) Urine Opiates Screen (NEGATIVE) Ur Oxycodone Screen (NEGATIVE) Urine Methadone Screen (NEGATIVE) Ur Barbiturates Screen (NEGATIVE) U Tricyclic Antidepress (NEGATIVE) Ur Phencyclidine Scrn (NEGATIVE) Ur Amphetamine Screen (NEGATIVE) U Methamphetamines Scrn (NEGATIVE) Urine MDMA Screen (NEGATIVE) U Benzodiazepines Scrn (NEGATIVE) Urine Cocaine Screen (NEGATIVE) U Marijuana (THC) Screen (NEGATIVE) Meds: Medications Generic Name Dose Route Start Last Admin Trade Name Freq PRN Reason Stop Dose Admin Prednisone 40 mg 02/23/21 18:51 Prednisone 20 Mg Tab PO 02/23/21 18:52 ONETIME ONE - Radiology Interpretation Free Text/Narrative:: [facility] [place] [facility] Final Radiology Report Call: [phone] assistance Online chat: [email or web address] Name: MARGUERITE BUTLER Age: 55Years F Date: 02/23/2021 SSN: -- : 1965 Study: CR CHEST 2V Requesting Physician: LORI LOZADA Images: 2 Addl Studies: Provided Clinical History: productive cough Contrast: Contrast Medium: Contrast Amount: Contrast Method: CONFIDENTIALITY STATEMENT This report is intended only for use by the referring physician, and only in accordance with law. If you received this in error, call [phone]. Page 1 of 1 PROCEDURE INFORMATION: Exam: XR Chest Exam date and time: 02/23/2021 6:09 PM Age: 55 years old Clinical indication: Cough; Additional info: Productive cough TECHNIQUE: Imaging protocol: XR of the chest. Views: 2 views. COMPARISON: No relevant prior studies available. FINDINGS: Lungs: Lungs hyperexpanded. No consolidation. Pleural spaces: Unremarkable. No pleural effusion. No pneumothorax. Heart/Mediastinum: Unremarkable. No cardiomegaly. Bones/joints: Thoracolumbar scoliosis. IMPRESSION: COPD. No acute findings Thank you for allowing us to participate in the care of your patient. Dictated and Authenticated by: Rafi Kiser MD 02/23/2021 6:23 PM Central Time ([place] & [place]) Departure - Departure Time of Disposition: 18:58 Disposition: Home, Self-Care 01 Condition: Good Clinical Impression: Acute exacerbation of chronic obstructive pulmonary disease (COPD), History of meningitis - Discharge Information *PRESCRIPTION DRUG MONITORING PROGRAM REVIEWED*: Not Applicable *COPY OF PRESCRIPTION DRUG MONITORING REPORT IN PATIENT SONIYA: Not Applicable Instructions: Chronic Obstructive Pulmonary Disease, [id number], Chronic Obstructive Pulmonary Disease Exacerbation, [id number] Forms: ED Department Discharge Additional Instructions: Rx: Prednisone 20mg Rx: Combivent inhaler Try to quit smoking. Follow up with your neurologist at the first available appointment. Follow up with your primary doctor for COPD recheck and ongoing management. Sepsis Event Note (ED) - Evaluation Sepsis Screening Result: No Definite Risk - Focused Exam Vital Signs: Vital Signs Temp Pulse Resp BP Pulse Ox 02/23/21 16:33 97.0 F 85 18 126/86 100 - My Orders Last 24 Hours: My Active Orders 02/23/21 17:08 VITAMIN D 25-HYROXY (D2, D3) [REF] Routine 02/23/21 18:51 predniSONE 40 mg PO ONETIME ONE - Assessment/Plan Last 24 Hours: My Active Orders 02/23/21 17:08 VITAMIN D 25-HYROXY (D2, D3) [REF] Routine 02/23/21 18:51 predniSONE 40 mg PO ONETIME ONE I have read and agree with the documentation that has been completed regarding this visit. By signing this record, I attest that the documentation was compl eted in my physical presence and is an accurate record of the encounter.
[2021-02-23] MEDS ORDERED: predniSONE 20 MG Tab PO ONE (18:51)
[2021-02-23] MEDS ORDERED: Lidocaine 2% Viscous Solution 15 ML Cup ONE (19:11)
== END 2021-02-23 19:20 | disposition home or self-care (01) ==
LOC: DL.ED 16:10
DX: J44.1 Chronic obstructive pulmonary disease with (acute) exacerbation (principal); I10 Essential (primary) hypertension; K21.9 Gastro-esophageal reflux disease without esophagitis; Z79.899 Other long term (current) drug therapy; Z86.61 Personal history of infections of the central nervous system
CPT/HCPCS: 36415; 71046; 80053; 80305; 81003; 82306; 82607; 83735; 84443; 85025; 86140; 99284; 99285; A9270; J7512

== ENCOUNTER 2021-03-28 12:03 | Emergency (ER) | payer MEDICAID ==
[2021-03-28 13:27] VITALS: BP 161/84; PULSE 84
[2021-03-28] MEDS ORDERED: methylPREDNISolone Sodium Succinate 125 MG/2 ML SDV IM ONE (13:48)
--- NOTE | 2021-03-28 13:54 | EDM.PDOC ---
ED HPI GENERAL MEDICAL PROBLEM - General Chief Complaint: Lower Extremity Injury/Pain Stated Complaint: PAIN IN LEGS Time Seen by Provider: 03/28/21 13:40 Source of Information: Reports: Patient History Limitations: Reports: No Limitations - History of Present Illness INITIAL COMMENTS - FREE TEXT/NARRATIVE: This 55 yo female patient reports to the ED with bilateral lower extremity pain. The patient reports her pain has been getting worse over the past 3 days, but she has been having pain for the past years. The patient has been attempting to work with Dr. Ricketts, but she could not sit still for the MRI due to increased anxiety. The patient reports she has taken Tylenol, ibuprofen and her muscle relaxer, but she has not taken her gabapentin. Onset: Unknown/Unsure Duration: Week(s):, Constant, Getting Worse Location: Reports: Lower Extremity, Left, Lower Extremity, Right Quality: Reports: Ache, Sharp, Stabbing Severity: Severe Improves with: Reports: None Worsens with: Reports: None Context: Reports: Other Associated Symptoms: Reports: No Other Symptoms Treatments EMERGENCY DOCTOR: Reports: Acetaminophen, NSAIDS Bilateral Lower Leg Pain Score (Numeric/FACES): 8 - Related Data Allergies Allergy/AdvReac Type Severity Reaction Status Date / Time No Known Allergies Allergy Verified 03/28/21 13:22 Home Meds: Home Meds Baclofen 30 mg PO QID 08/26/20 [History] Omeprazole 20 mg PO ACBREAKFAST 08/26/20 [History] Gabapentin [Neurontin] 600 mg PO BID 02/23/21 [History] Ibuprofen 600 mg PO ASDIRECTED PRN 02/23/21 [History] Oxybutynin 5 mg PO DAILY 02/23/21 [History] tiZANidine [Zanaflex] 10 mg PO BID 02/23/21 [History] Famotidine 10 mg PO DAILY 03/28/21 [History] Loratadine [Allergy Relief] 10 mg PO DAILY 03/28/21 [History] Past Medical History HEENT History: Reports: Impaired Vision Cardiovascular History: Reports: Hypertension Respiratory History: Reports: None Gastrointestinal History: Reports: GERD, Hepatitis Genitourinary History: Reports: UTI, 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 Psychiatric History: Reports: Addiction, Anxiety, Depression, Panic Attack Endocrine/Metabolic History: Reports: None Hematologic History: Reports: None Immunologic History: Reports: None Oncologic (Cancer) History: Reports: None Dermatologic History: Reports: None - Infectious Disease History Infectious Disease History: Reports: Chicken Pox, Hepatitis A, Meningitis Other Infectious Disease History: exposure to Hep C - Past Surgical History Head Surgeries/Procedures: Reports: None HEENT Surgical History: Reports: None Cardiovascular Surgical History: Reports: None Respiratory Surgical History: Reports: None GI Surgical History: Reports: Cholecystectomy Female Surgical History: Reports: Section, Tubal Ligation Neurological Surgical History: Reports: Other (See Below) Social & Family History - Family History Family Medical History: No Pertinent Family History - Tobacco Use Tobacco Use Status *Q: Current Every Day Tobacco User Years of Tobacco use: 20 Packs/Tins Daily: 0.2 - Caffeine Use Caffeine Use: Reports: Coffee - Recreational Drug Use Recreational Drug Use: Yes Drug Use in Last 12 Months: Yes Recreational Drug Type: Reports: Marijuana/Hashish Recreational Drug Use Frequency: Daily - Living Situation & Occupation Occupation: Disabled Review of Systems - Review of Systems Review Of Systems: Comprehensive ROS is negative, except as noted in HPI. ED EXAM, GENERAL - Physical Exam Exam: See Below Exam Limited By: No Limitations General Appearance: Alert, WD/WN, Moderate Distress Eye Exam: Bilateral Eye: EOMI, Normal Inspection, PERRL Ears: Normal External Exam, Normal Canal, Hearing Grossly Normal, Normal TMs Nose: Normal Inspection, Normal Mucosa, No Blood Throat/Mouth: Normal Inspection, Normal Lips, Normal Gums, Normal Oropharynx, Normal Voice, No Airway Compromise Head: Atraumatic, Normocephalic Neck: Normal Inspection, Supple, Non-Tender, Full Range of Motion Respiratory/Chest: No Respiratory Distress, Lungs Clear, Normal Breath Sounds, No Accessory Muscle Use, Chest Non-Tender Cardiovascular: Normal Peripheral Pulses, Regular Rate, Rhythm, No Edema, No Gallop, No JVD, No Murmur, No Rub GI/Abdominal: Normal Bowel Sounds, Soft, Non-Tender, No Organomegaly, No Distention, No Abnormal Bruit, No Mass (Female) Exam: Deferred Rectal (Female) Exam: Deferred Back Exam: Normal Inspection, Full Range of Motion, NT Extremities: Leg Pain (bilateral shooting pain into her lower extremities) Neurological: Alert, Oriented, CN II-XII Intact, Normal Cognition, Normal Gait, Normal Reflexes, No Motor/Sensory Deficits Psychiatric: Normal Affect, Normal Mood Skin Exam: Warm, Dry, Intact, Normal Color, No Rash Lymphatic: No Adenopathy Course - Vital Signs Last Recorded V/S: Last Vital Signs Temp 36.8 C 03/28/21 13:19 Pulse 84 03/28/21 13:19 Resp 20 03/28/21 13:19 BP 161/84 H 03/28/21 13:19 Pulse Ox 97 03/28/21 13:19 - Orders/Labs/Meds Labs: Laboratory Tests 03/28/21 03/28/21 03/28/21 Range/Units 13:17 13:17 13:51 WBC 7.1 (5.0-10.0) 10^3/uL RBC 4.23 (4.2-5.4) 10^6/uL Hgb 13.6 (12.0-16.0) g/dL Hct 38.9 (37.0-47.0) % MCV 92.0 (80-100) fL MCH 32.2 (27.0-34.0) pg MCHC 35.0 (33.0-35.0) g/dL Plt Count 228 (150-450) 10^3/uL Neut % (Auto) 61.0 (42.2-75.2) % Lymph % (Auto) 31.5 (20.5-50.1) % [place] % (Auto) 4.4 (2-8) % Eos % (Auto) 2.5 (1.0-3.0) % Baso % (Auto) 0.6 (0.0-1.0) % Sodium (136-145) mmol/L Potassium (3.5-5.1) mmol/L Chloride (98-107) mmol/L Carbon Dioxide (21-32) mmol/L Anion Gap (7-13) mEq/L BUN (7-18) mg/dL Creatinine (0.55-1.02) mg/dL Est Cr Clr Drug Dosing mL/min Estimated GFR (MDRD) BUN/Creatinine Ratio (No establ ref range) Glucose (70-99) mg/dL Calcium (8.5-10.1) mg/dL Total Bilirubin (0.2-1.0) mg/dL AST (15-37) U/L ALT (14-59) U/L Alkaline Phosphatase (46-116) U/L Total Protein (6.4-8.2) g/dL Albumin (3.4-5.0) g/dL Globulin Albumin/Globulin Ratio Urine Color Yellow (YELLOW) Urine Appearance Clear (CLEAR) Urine pH 7.0 (5.0-9.0) Ur Specific [place] 1.025 (1.005-1.030) Urine Protein Negative (NEGATIVE) Urine Glucose (UA) Negative (NEGATIVE) Urine Ketones Negative (NEGATIVE) Urine Occult Blood Negative (NEGATIVE) Urine Nitrite Negative (NEGATIVE) Urine Bilirubin Negative (NEGATIVE) Urine Urobilinogen 0.2 (0.2-1.0) mg/dL Ur Leukocyte Esterase Negative (NEGATIVE) Urine Opiates Screen Negative (NEGATIVE) Ur Oxycodone Screen Negative (NEGATIVE) Urine Methadone Screen Negative (NEGATIVE) Ur Barbiturates Screen Negative (NEGATIVE) U Tricyclic Antidepress Negative (NEGATIVE) Ur Phencyclidine Scrn Negative (NEGATIVE) Ur Amphetamine Screen Negative (NEGATIVE) U Methamphetamines Scrn Negative (NEGATIVE) Urine MDMA Screen Negative (NEGATIVE) U Benzodiazepines Scrn Negative (NEGATIVE) Urine Cocaine Screen Negative (NEGATIVE) U Marijuana (THC) Screen Positive H (NEGATIVE) 03/28/21 Range/Units 13:51 WBC (5.0-10.0) 10^3/uL RBC (4.2-5.4) 10^6/uL Hgb (12.0-16.0) g/dL Hct (37.0-47.0) % MCV (80-100) fL MCH (27.0-34.0) pg MCHC (33.0-35.0) g/dL Plt Count (150-450) 10^3/uL Neut % (Auto) (42.2-75.2) % Lymph % (Auto) (20.5-50.1) % [place] % (Auto) (2-8) % Eos % (Auto) (1.0-3.0) % Baso % (Auto) (0.0-1.0) % Sodium 138 (136-145) mmol/L Potassium 4.4 (3.5-5.1) mmol/L Chloride 104 (98-107) mmol/L Carbon Dioxide 23 (21-32) mmol/L Anion Gap 15.4 H (7-13) mEq/L BUN 20 H (7-18) mg/dL Creatinine 0.84 (0.55-1.02) mg/dL Est Cr Clr Drug Dosing 68.09 mL/min Estimated GFR (MDRD) > 60 BUN/Creatinine Ratio 23.8 (No establ ref range) Glucose 113 H (70-99) mg/dL Calcium 10.2 H (8.5-10.1) mg/dL Total Bilirubin 0.5 (0.2-1.0) mg/dL AST 28 (15-37) U/L ALT 32 (14-59) U/L Alkaline Phosphatase 130 H (46-116) U/L Total Protein 7.9 (6.4-8.2) g/dL Albumin 4.1 (3.4-5.0) g/dL Globulin 3.8 Albumin/Globulin Ratio 1.1 Urine Color (YELLOW) Urine Appearance (CLEAR) Urine pH (5.0-9.0) Ur Specific [place] (1.005-1.030) Urine Protein (NEGATIVE) Urine Glucose (UA) (NEGATIVE) Urine Ketones (NEGATIVE) Urine Occult Blood (NEGATIVE) Urine Nitrite (NEGATIVE) Urine Bilirubin (NEGATIVE) Urine Urobilinogen (0.2-1.0) mg/dL Ur Leukocyte Esterase (NEGATIVE) Urine Opiates Screen (NEGATIVE) Ur Oxycodone Screen (NEGATIVE) Urine Methadone Screen (NEGATIVE) Ur Barbiturates Screen (NEGATIVE) U Tricyclic Antidepress (NEGATIVE) Ur Phencyclidine Scrn (NEGATIVE) Ur Amphetamine Screen (NEGATIVE) U Methamphetamines Scrn (NEGATIVE) Urine MDMA Screen (NEGATIVE) U Benzodiazepines Scrn (NEGATIVE) Urine Cocaine Screen (NEGATIVE) U Marijuana (THC) Screen (NEGATIVE) Meds: Medications Discontinued Medications Generic Name Dose Route Start Last Admin Trade Name Freq PRN Reason Stop Dose Admin Methylprednisolone Sodium Succinate 125 mg 03/28/21 13:48 03/28/21 13:56 Methylprednisolone Sodium Succinate 125 Mg/2 Ml Sdv IM 03/28/21 13:49 125 mg ONETIME ONE Administration Departure - Departure Time of Disposition: 14:27 Disposition: Home, Self-Care 01 Condition: Fair Clinical Impression: Neuropathy - Discharge Information *PRESCRIPTION DRUG MONITORING PROGRAM REVIEWED*: Not Applicable *COPY OF PRESCRIPTION DRUG MONITORING REPORT IN PATIENT SONIYA: Not Applicable Instructions: Peripheral Neuropathy Forms: ED Department Discharge Care Plan Goals: The patient was advised of the examination and lab results during the visit. The patient was given an injection of SoluMedrol (125 mg) while in the ED. The patient was discharged with a script for Prednisone (20 mg) #10 to take 2 by mouth daily for 5 days (starting 03/29/21). The patient was encouraged to take her medications as prescribed. If the patient has any additional symptoms or concerns, the patient should either return to the emergency department or visit her primary care facility. Sepsis Event Note (ED) - Evaluation Sepsis Screening Result: No Definite Risk - Focused Exam Vital Signs: Vital Signs Temp Pulse Resp BP Pulse Ox 03/28/21 13:19 36.8 C 84 20 161/84 H 97
[2021-03-28 14:14] LABS: ANION GAP 15.4 mEq/L (7-13); CHLORIDE,CL 104 mmol/L (98-107); SODIUM,NA 138 mmol/L (136-145)
== END 2021-03-28 14:35 | disposition home or self-care (01) ==
LOC: DL.ED 12:03
DX: G62.9 Polyneuropathy, unspecified (principal); K21.9 Gastro-esophageal reflux disease without esophagitis; Z79.899 Other long term (current) drug therapy; Z72.0 Tobacco use
CPT/HCPCS: 36415; 80053; 80305-QW; 81003; 85025; 96372; 99283; J2930

== ENCOUNTER 2021-07-16 20:56 | Emergency (ER) | payer MEDICAID ==
--- NOTE | 2021-07-16 20:31 | EDM.PDOC ---
<Lane Miranda - Last Filed: 07/16/21 22:11> ED HPI GENERAL MEDICAL PROBLEM - General Chief Complaint: Back Pain or Injury Stated Complaint: AMBULANCE Time Seen by Provider: 07/16/21 20:31 Source of Information: Reports: Patient History Limitations: Reports: No Limitations - History of Present Illness INITIAL COMMENTS - FREE TEXT/NARRATIVE: Patient is a 56 year old female with pmh significant for chronic pain, degenerative disc disease, COPD and recent COVID infection who presents to clinic for evaluation of low back pain. Patient reports that she was discharged from the hospital in [place] 2-3 days ago after being hospitalized for 9 days with COVID. She states that she was not on oxygen during this hospitalization. Prior to this hospitalization, patient had been started on methadone due to opioid dependence. She ran out of this and her back pain worsened. She states that she has horrible pain in the right lower side of her back. She does report falling on a number of occasions however does not feel that the pain started after any of these falls. Denies hitting head. Is not on blood thinners. Her COVID diagnosis occured on the with symptoms starting a few days prior to that. Onset: Today Onset Date: 07/16/21 Duration: Constant Location: Reports: Back Quality: Reports: Sharp, Throbbing Severity: Severe Improves with: Reports: None Worsens with: Reports: Movement Associated Symptoms: Reports: cough w sputum. Denies: Weakness Back Pain Score (Numeric/FACES): 8 - Related Data Allergies Allergy/AdvReac Type Severity Reaction Status Date / Time No Known Allergies Allergy Verified 07/16/21 22:01 Home Meds: Home Meds Baclofen 30 mg PO QID 08/26/20 [History] Omeprazole 20 mg PO ACBREAKFAST 08/26/20 [History] Gabapentin [Neurontin] 600 mg PO BID 02/23/21 [History] Ibuprofen 600 mg PO ASDIRECTED PRN 02/23/21 [History] Oxybutynin 5 mg PO DAILY 02/23/21 [History] tiZANidine [Zanaflex] 10 mg PO BID 02/23/21 [History] Famotidine 10 mg PO DAILY 03/28/21 [History] Loratadine [Allergy Relief] 10 mg PO DAILY 03/28/21 [History] Past Medical History HEENT History: Reports: Impaired Vision Cardiovascular History: Reports: Hypertension Respiratory History: Reports: None Gastrointestinal History: Reports: GERD, Hepatitis Genitourinary History: Reports: UTI, 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 Psychiatric History: Reports: Addiction, Anxiety, Depression, Panic Attack Endocrine/Metabolic History: Reports: None Hematologic History: Reports: None Immunologic History: Reports: None Oncologic (Cancer) History: Reports: None Dermatologic History: Reports: None - Infectious Disease History Infectious Disease History: Reports: Chicken Pox, Hepatitis A, Meningitis Other Infectious Disease History: exposure to Hep C - Past Surgical History Head Surgeries/Procedures: Reports: None HEENT Surgical History: Reports: None Cardiovascular Surgical History: Reports: None Respiratory Surgical History: Reports: None GI Surgical History: Reports: Cholecystectomy Female Surgical History: Reports: Section, Tubal Ligation Neurological Surgical History: Reports: Other (See Below) Social & Family History - Family History Family Medical History: No Pertinent Family History - Caffeine Use Caffeine Use: Reports: Coffee - Living Situation & Occupation Occupation: Disabled ED ROS GENERAL - Review of Systems Review Of Systems: See Below Constitutional: Reports: No Symptoms HEENT: Reports: No Symptoms Respiratory: Reports: Cough Cardiovascular: Reports: No Symptoms. Denies: Chest Pain, Dyspnea on Exertion Endocrine: Reports: No Symptoms GI/Abdominal: Reports: No Symptoms : Reports: No Symptoms Musculoskeletal: Reports: No Symptoms Skin: Reports: No Symptoms Neurological: Reports: No Symptoms. Denies: Numbness, Paresthesia, Tingling, Difficulty Walking, Weakness, Gait Disturbance Psychiatric: Reports: No Symptoms Hematologic/Lymphatic: Reports: No Symptoms Immunologic: Reports: No Symptoms ED EXAM,LOWER BACK PAIN/INJURY - Physical Exam Exam: See Below Exam Limited By: No Limitations General Appearance: Alert, WD/WN, No Apparent Distress Ears: Normal External Exam Nose: Normal Inspection Throat/Mouth: Normal Inspection, Normal Lips. No: Normal Teeth, Normal Gums Head: Atraumatic Neck: Normal Inspection, Non-Tender, Full Range of Motion Respiratory/Chest: No Respiratory Distress, Lungs Clear, Normal Breath Sounds, No Accessory Muscle Use. No: Respiratory Distress, Crackles, Rales, Rhonchi, Wheezing Cardiovascular: Regular Rate, Rhythm, No Gallop, No JVD, No Murmur GI/Abdominal: Soft, Non-Tender (Female) Exam: Deferred Rectal (Female) Exam: Deferred Back Exam: Decreased Range of Motion, Muscle Spasm, Paraspinal Tenderness, Vertebral Tenderness. No: CVA Tenderness (L), CVA Tenderness (R) Extremities: Normal Inspection. No: Pedal Edema Neurological: Alert, Normal Mood/Affect, Normal Gait Psychiatric: Normal Affect Skin Exam: Warm, Dry Lymphatic: No Adenopathy Departure - Departure Time of Disposition: 22:12 Disposition: Home, Self-Care 01 Clinical Impression: Lower back pain Qualifiers: Chronicity: unspecified Back pain laterality: left Sciatica presence: without sciatica Qualified Code(s): M54.5 - Low back pain - Discharge Information *PRESCRIPTION DRUG MONITORING PROGRAM REVIEWED*: Yes *COPY OF PRESCRIPTION DRUG MONITORING REPORT IN PATIENT SONIYA: Not Applicable Instructions: Managing Chronic Back Pain, Chronic Back Pain Forms: ED Department Discharge Additional Instructions: Follow up with primary care clinic or pain clinic for ongoing management chronic pain issues increase fruit and fiber in diet miralax one capful daily with at least 8 ounces liquid alternate tylenol and ibuprofen every 4 hours as needed for discomfort bengay, or similar product <Sully Salcedo - Last Filed: 07/17/21 02:14> Course - Vital Signs Last Recorded V/S: Last Vital Signs Temp 98.1 F 07/16/21 21:56 Pulse 74 07/16/21 21:56 Resp 16 07/16/21 21:56 BP 138/86 07/16/21 21:56 Pulse Ox 100 07/16/21 21:56 Departure - Departure Condition: Good Sepsis Event Note (ED) - Focused Exam Vital Signs: Vital Signs Temp Pulse Resp BP Pulse Ox 07/16/21 21:56 98.1 F 74 16 138/86 100 Attestation - Resident - Attestation Statement Attestation Statement: I saw and evaluated the patient. Discussed with resident and agree with residents findings and plan as documented in the residents note.
[2021-07-16 21:58] VITALS: BP 138/86; PULSE 74
--- NOTE | 2021-07-16 22:08 | CR ---
PROCEDURE INFORMATION: Exam: XR Pelvis Exam date and time: 07/16/2021 9:31 PM Age: 56 years old Clinical indication: Pelvic pain and other: Back pain TECHNIQUE: Imaging protocol: XR pelvis. Views: 1 or 2 view. COMPARISON: CR Lumbar Spine 2 or 3V 07/16/2021 9:29 PM FINDINGS: Bones/joints: Mild bilateral hip osteoarthritis, as manifested predominantly by decreased joint space and marginal osteophyte formation. There is no evidence of acutely displaced fractures. There is no evidence of joint dislocation. No aggressive osseous lesions. Soft tissues: There is no significant soft tissue swelling. Gastrointestinal tract: Severe constipation. IMPRESSION: 1. Negative for acute skeletal pathology. 2. Severe constipation.
--- NOTE | 2021-07-16 22:10 | CR ---
PROCEDURE INFORMATION: Exam: XR Lumbosacral Spine Exam date and time: 07/16/2021 9:29 PM Age: 56 years old Clinical indication: Low back pain TECHNIQUE: Imaging protocol: XR of the lumbosacral spine. Views: 2 or 3 views. COMPARISON: CR Lumbar Spine 2 or 3V 07/17/2017 9:59 AM FINDINGS: Bones/joints: Straightening of the normal lumbar lordosis. Mild multilevel degenerative changes of the spine, as manifested by multilevel anterior osteophytes and multilevel decrease in intervertebral disc space. No aggressive osseous lesions. The spinal canal is patent. Mild diffuse facet joint hypertrophy. Soft tissues: There is no significant soft tissue swelling. Intraperitoneal space: Surgical clips are present in the right upper quadrant, consistent with previous cholecystectomy. Gastrointestinal tract: No bowel obstruction or significant bowel wall thickening. There is excessive colonic stool content. Other findings: There is no evidence of acutely displaced fractures. There is no evidence of joint dislocation. IMPRESSION: 1. Mild multilevel degenerative changes without acute skeletal pathology. 2. Severe constipation.
== END 2021-07-16 22:28 | disposition home or self-care (01) ==
LOC: DL.ED 20:56
DX: M54.5 Low back pain (principal); K21.9 Gastro-esophageal reflux disease without esophagitis; I10 Essential (primary) hypertension; Z79.899 Other long term (current) drug therapy
CPT/HCPCS: 72100; 72170; 99284-25

== ENCOUNTER 2021-08-09 11:57 | Emergency (ER) | payer MEDICAID | END 2021-08-09 13:59 | disposition left against medical advice (07) | LOC: DL.ED 11:57 | DX: R13.10 Dysphagia, unspecified (principal); Z53.21 Procedure and treatment not carried out due to patient leaving prior to being seen by health care provider ==

== ENCOUNTER 2021-08-10 18:58 | Emergency (ER) | payer MEDICAID ==
--- NOTE | 2021-08-10 19:29 | EDM.PDOCBH ---
ED HPI GENERAL MEDICAL PROBLEM - General Chief Complaint: Behavioral/Psych Stated Complaint: AMBULANCE Time Seen by Provider: 08/10/21 19:05 Source of Information: Reports: Patient, EMS, RN, RN Notes Reviewed History Limitations: Reports: No Limitations - History of Present Illness INITIAL COMMENTS - FREE TEXT/NARRATIVE: Gloria is a 56 y/o female who presents to the ED via [facility] with complaints of fentanyl overdose. The patient states she smoke 1/2 tab of Fentanyl and began to dose off, so she self administered Narcan via nare x2 and called EMS. She received an additional dose of Narcan en route. Upon arrival to this facility she is trashing in bed and oriented to self and situation, only. She denies pain to her head, trunk, or extremities. The patient notes she has been in counseling for drug addiction and is currently on methadone. - Related Data Allergies Allergy/AdvReac Type Severity Reaction Status Date / Time No Known Allergies Allergy Verified 08/10/21 19:03 Home Meds: Home Meds Baclofen 30 mg PO QID 08/26/20 [History] Omeprazole 20 mg PO ACBREAKFAST 08/26/20 [History] Gabapentin [Neurontin] 600 mg PO BID 02/23/21 [History] Ibuprofen 600 mg PO ASDIRECTED PRN 02/23/21 [History] Oxybutynin 5 mg PO DAILY 02/23/21 [History] tiZANidine [Zanaflex] 10 mg PO BID 02/23/21 [History] Famotidine 10 mg PO DAILY 03/28/21 [History] Loratadine [Allergy Relief] 10 mg PO DAILY 03/28/21 [History] Past Medical History HEENT History: Reports: Impaired Vision Cardiovascular History: Reports: Hypertension Respiratory History: Reports: None Gastrointestinal History: Reports: GERD, Hepatitis Genitourinary History: 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 Psychiatric History: Reports: Addiction, Anxiety, Depression, Panic Attack Endocrine/Metabolic History: Reports: None Hematologic History: Reports: None Immunologic History: Reports: None Oncologic (Cancer) History: Reports: None Dermatologic History: Reports: None - Infectious Disease History Infectious Disease History: Reports: Chicken Pox, Hepatitis A, Meningitis Other Infectious Disease History: exposure to Hep C - Past Surgical History Head Surgeries/Procedures: Reports: None HEENT Surgical History: Reports: None Cardiovascular Surgical History: Reports: None Respiratory Surgical History: Reports: None GI Surgical History: Reports: Cholecystectomy Female Surgical History: Reports: Section, Tubal Ligation Neurological Surgical History: Reports: Other (See Below) Social & Family History - Family History Family Medical History: No Pertinent Family History - Tobacco Use Tobacco Use Status *Q: Current Every Day Tobacco User Years of Tobacco use: 0 Packs/Tins Daily: 0 - Caffeine Use Caffeine Use: Reports: Coffee, Energy Drinks, Soda, Tea, Other - Recreational Drug Use Recreational Drug Use: Yes Drug Use in Last 12 Months: Yes Recreational Drug Type: Reports: Fentanyl Recreational Drug Use Frequency: Binges - Living Situation & Occupation Occupation: Disabled ED ROS GENERAL - Review of Systems Review Of Systems: Comprehensive ROS is negative, except as noted in HPI. ED EXAM, BEHAVIORAL HEALTH - Physical Exam Exam: See Below Exam Limited By: Intoxication General Appearance: Alert, Mild Distress (Trashing in bed; Verbal) Eye Exam: Bilateral Eye: EOMI, Normal Inspection, PERRL (2mm) Ears: Normal External Exam, Hearing Grossly Normal Nose: Normal Inspection, Normal Mucosa, No Blood Throat/Mouth: Normal Inspection, Normal Oropharynx, Normal Voice, No Airway Compromise Head: Atraumatic, Normocephalic Neck: Normal Inspection, Supple, Non-Tender, Full Range of Motion Respiratory/Chest: No Respiratory Distress, Lungs Clear, Normal Breath Sounds, No Accessory Muscle Use, Chest Non-Tender. No: Crackles, Rales, Rhonchi, Wheezing Cardiovascular: Normal Peripheral Pulses, Regular Rate, Rhythm, No Edema, No Gallop, No JVD, No Murmur, No Rub GI/Abdominal: Normal Bowel Sounds, Soft, Non-Tender, No Distention, No Abnormal Bruit, No Mass, Pelvis Stable (Female) Exam: Deferred Rectal (Female) Exam: Deferred Back Exam: Normal Inspection, Full Range of Motion Extremities: Normal Inspection, Normal Range of Motion, Normal Capillary Refill Neurological: Alert, Disoriented to Time, Memory Loss Recent Events, Opens Eyes to Commands, Withdraws to Pain. No: Memory Loss Remote Events Psychiatric: Alert, Restless, Agitated. No: Suicidal Plan, Suicidal Thoughts, Auditory Hallucinations, Visual Hallucinations, Grandiose Thoughts, Pressured Speech, Paranoid Thoughts, Threatening Behavior Skin Exam: Warm, Intact, Normal color, No rash, Diaphoretic. No: Cyanosis, Jaundice, Mottled, Pallor #1 Interpretation EKG Date: 08/11/21 Time: 19:45 Rhythm: NSR Rate (Beats/Min): 74 [place]: Normal P-Wave: Present QRS: Normal ST-T: Normal QT: Normal AK/PQ Interval: .071 Comparison: NA - No Prior EKG EKG Interpretation Comments: NSR; No evidence of acute myocardial ischemia COURSE, BEHAVIORAL HEALTH COMP - Course Vital Signs: Last Vital Signs Temp 98 F 08/11/21 06:11 Pulse 73 08/11/21 06:11 Resp 21 H 08/11/21 06:11 BP 144/54 H 08/11/21 06:11 Pulse Ox 95 08/11/21 06:11 Orders, Labs, Meds: Active Orders 24 hr Category Date Time Status CULTURE URINE [RM] Stat Lab 08/10/21 20:09 Received Laboratory Tests 08/10/21 08/10/21 08/10/21 Range/Units 19:09 19:09 20:09 WBC 9.9 (5.0-10.0) 10^3/uL RBC 4.53 (4.2-5.4) 10^6/uL Hgb 14.3 (12.0-16.0) g/dL Hct 41.8 (37.0-47.0) % MCV 92.3 (80-100) fL MCH 31.6 (27.0-34.0) pg MCHC 34.2 (33.0-35.0) g/dL Plt Count 254 (150-450) 10^3/uL Neut % (Auto) 38.7 L (42.2-75.2) % Lymph % (Auto) 52.8 H (20.5-50.1) % [place] % (Auto) 7.0 (2-8) % Eos % (Auto) 1.2 (1.0-3.0) % Baso % (Auto) 0.3 (0.0-1.0) % Sodium 141 (136-145) mmol/L Potassium 4.1 (3.5-5.1) mmol/L Chloride 105 (98-107) mmol/L Carbon Dioxide 25 (21-32) mmol/L Anion Gap 15.1 H (7-13) mEq/L BUN 10 (7-18) mg/dL Creatinine 0.87 (0.55-1.02) mg/dL Est Cr Clr Drug Dosing 75.46 mL/min Estimated GFR (MDRD) > 60 BUN/Creatinine Ratio 11.5 (No establ ref range) Glucose 87 (70-99) mg/dL Calcium 11.1 H (8.5-10.1) mg/dL Total Bilirubin 0.7 (0.2-1.0) mg/dL AST 58 H (15-37) U/L ALT 67 H (14-59) U/L Alkaline Phosphatase 110 (46-116) U/L Troponin I High Sens 9 (<=51) pg/mL C-Reactive Protein < 0.2 (0.0-0.9) mg/dL Total Protein 7.7 (6.4-8.2) g/dL Albumin 3.9 (3.4-5.0) g/dL Globulin 3.8 Albumin/Globulin Ratio 1.0 Urine Color Yellow (YELLOW) Urine Appearance Slightly cloudy (CLEAR) Urine pH 8.5 (5.0-9.0) Ur Specific [place] 1.020 (1.005-1.030) Urine Protein Negative (NEGATIVE) Urine Glucose (UA) Negative (NEGATIVE) Urine Ketones Negative (NEGATIVE) Urine Occult Blood Trace-intact H (NEGATIVE) Urine Nitrite Positive H (NEGATIVE) Urine Bilirubin Negative (NEGATIVE) Urine Urobilinogen 1.0 (0.2-1.0) mg/dL Ur Leukocyte Esterase Small H (NEGATIVE) Urine RBC 0-5 (0-5) /HPF Urine WBC 50-75 H (0-5/HPF) /HPF Ur Epithelial Cells Occasional (NOT SEEN) /HPF Amorphous Sediment Moderate H (NOT SEEN) /HPF Urine Bacteria Moderate H (0-FEW/HPF) /HPF Urine Mucus Rare (NOT SEEN) /LPF Urine Opiates Screen (NEGATIVE) Ur Oxycodone Screen (NEGATIVE) Urine Methadone Screen (NEGATIVE) Ur Barbiturates Screen (NEGATIVE) U Tricyclic Antidepress (NEGATIVE) Ur Phencyclidine Scrn (NEGATIVE) Ur Amphetamine Screen (NEGATIVE) U Methamphetamines Scrn (NEGATIVE) Urine MDMA Screen (NEGATIVE) U Benzodiazepines Scrn (NEGATIVE) Urine Cocaine Screen (NEGATIVE) U Marijuana (THC) Screen (NEGATIVE) Ethyl Alcohol < 3 (0) mg/dL SARS-CoV-2 RNA (ABDI) (NEGATIVE) 08/10/21 08/10/21 Range/Units 20:09 20:21 WBC (5.0-10.0) 10^3/uL RBC (4.2-5.4) 10^6/uL Hgb (12.0-16.0) g/dL Hct (37.0-47.0) % MCV (80-100) fL MCH (27.0-34.0) pg MCHC (33.0-35.0) g/dL Plt Count (150-450) 10^3/uL Neut % (Auto) (42.2-75.2) % Lymph % (Auto) (20.5-50.1) % [place] % (Auto) (2-8) % Eos % (Auto) (1.0-3.0) % Baso % (Auto) (0.0-1.0) % Sodium (136-145) mmol/L Potassium (3.5-5.1) mmol/L Chloride (98-107) mmol/L Carbon Dioxide (21-32) mmol/L Anion Gap (7-13) mEq/L BUN (7-18) mg/dL Creatinine (0.55-1.02) mg/dL Est Cr Clr Drug Dosing mL/min Estimated GFR (MDRD) BUN/Creatinine Ratio (No establ ref range) Glucose (70-99) mg/dL Calcium (8.5-10.1) mg/dL Total Bilirubin (0.2-1.0) mg/dL AST (15-37) U/L ALT (14-59) U/L Alkaline Phosphatase (46-116) U/L Troponin I High Sens (<=51) pg/mL C-Reactive Protein (0.0-0.9) mg/dL Total Protein (6.4-8.2) g/dL Albumin (3.4-5.0) g/dL Globulin Albumin/Globulin Ratio Urine Color (YELLOW) Urine Appearance (CLEAR) Urine pH (5.0-9.0) Ur Specific [place] (1.005-1.030) Urine Protein (NEGATIVE) Urine Glucose (UA) (NEGATIVE) Urine Ketones (NEGATIVE) Urine Occult Blood (NEGATIVE) Urine Nitrite (NEGATIVE) Urine Bilirubin (NEGATIVE) Urine Urobilinogen (0.2-1.0) mg/dL Ur Leukocyte Esterase (NEGATIVE) Urine RBC (0-5) /HPF Urine WBC (0-5/HPF) /HPF Ur Epithelial Cells (NOT SEEN) /HPF Amorphous Sediment (NOT SEEN) /HPF Urine Bacteria (0-FEW/HPF) /HPF Urine Mucus (NOT SEEN) /LPF Urine Opiates Screen Negative (NEGATIVE) Ur Oxycodone Screen Negative (NEGATIVE) Urine Methadone Screen Positive H (NEGATIVE) Ur Barbiturates Screen Negative (NEGATIVE) U Tricyclic Antidepress Negative (NEGATIVE) Ur Phencyclidine Scrn Negative (NEGATIVE) Ur Amphetamine Screen Negative (NEGATIVE) U Methamphetamines Scrn Negative (NEGATIVE) Urine MDMA Screen Negative (NEGATIVE) U Benzodiazepines Scrn Negative (NEGATIVE) Urine Cocaine Screen Negative (NEGATIVE) U Marijuana (THC) Screen Negative (NEGATIVE) Ethyl Alcohol (0) mg/dL SARS-CoV-2 RNA (ABDI) Positive H (NEGATIVE) Medications Discontinued Medications Generic Name Dose Route Start Last Admin Trade Name Alan PRN Reason Stop Dose Admin Ceftriaxone Sodium 1 gm 08/10/21 21:38 08/10/21 21:52 Ceftriaxone 1 Gm Vial IM 08/10/21 21:39 1 gm ONETIME ONE Administration Diphenhydramine HCl 50 mg 08/10/21 20:43 08/10/21 20:53 Diphenhydramine 50 Mg/Ml Sdv IVPUSH 08/10/21 20:44 50 mg ONETIME ONE Administration Haloperidol Lactate 5 mg 08/10/21 20:42 08/10/21 20:54 Haloperidol Lactate 5 Mg/Ml Sdv IM 08/10/21 20:43 5 mg ONETIME ONE Administration Sterile Water Confirm 08/10/21 21:49 08/10/21 21:53 Sterile Water For Injection Administered 08/10/21 21:50 1.2 mls/hr Dose Administration 20 mls @ as directed .ROUTE .STK-MED ONE Lorazepam 2 mg 08/10/21 19:30 08/10/21 19:33 Lorazepam 2 Mg/Ml Sdv IVPUSH 08/10/21 19:31 2 mg ONETIME ONE Administration Re-Assessment/Re-Exam: Norberto, patient's father contacted regarding plan of care. Norberto states he and his are too old to care for Gloria at this point; she was discharged from [facility] following a COVID infection approximately three weeks ago and was living with her parents as long as she was drug-free. He suggested ED staff reach out to Mark, her son. Mark called by ED staff; he states he is not able to care for his mother due to the small children in his home. Patient now alert and oriented to all spheres. She states she is willing to speak to [facility] for possible treatment plan. Lacie from [facility] here to evaluate patient; Gloria not compliant with conversation stating she does not feel she is ready for inpatient treatment. Findings of examination and lab work reviewed with patient. Will treat UTI with Macrobid. Patient instructed to follow up with PCP regarding today's visit. Phone numbers for both homeless shelters in [place] given to patient. Red flag signs and symptoms which would warrant reevaluation reviewed. Patient verbalized understanding. Norberto notified of plan of care. He verbalized understanding that his daughter was discharged from this facility on her own with homeless snf numbers. Departure - Departure Time of Disposition: 06:09 Disposition: Home, Self-Care 01 Clinical Impression: Intentional fentanyl overdose Qualifiers: Encounter type: initial encounter Qualified Code(s): T40.412A - Poisoning by fentanyl or fentanyl analogs, intentional self-harm, initial encounter Urinary tract infection Qualifiers: Urinary tract infection type: site unspecified Hematuria presence: with hematuria Qualified Code(s): N39.0 - Urinary tract infection, site not specified - Discharge Information *PRESCRIPTION DRUG MONITORING PROGRAM REVIEWED*: Not Applicable *COPY OF PRESCRIPTION DRUG MONITORING REPORT IN PATIENT SONIYA: Not Applicable Forms: ED Department Discharge Additional Instructions: Rx: Macrobid 1.) Take all of you antibiotic until gone, even as symptoms improve. 2.) Drink plenty of water to stay hydrated and to flush out kidneys/bladder. 3.) Do not use recreational drugs, or prescribed drugs recreationally. 4.) Continue to follow with your mental health providers. Sepsis Event Note (ED) - Evaluation Sepsis Screening Result: No Definite Risk - Focused Exam Vital Signs: Vital Signs Temp Pulse Resp BP Pulse Ox 08/11/21 06:11 98 F 73 21 H 144/54 H 95 08/11/21 01:07 76 16 121/64 100 09/26/21 23:01 97.8 F 73 16 131/75 100 08/10/21 22:32 97.1 F 72 15 138/74 98 08/10/21 21:36 93 19 140/87 100 08/10/21 20:37 84 21 H 92/78 98 08/10/21 19:27 95 F L 72 24 H 139/96 H 96 08/10/21 19:03 96.7 F L 84 24 H 98
[2021-08-10] MEDS ORDERED: LORazepam 2 MG/ML SDV IVPUSH ONE (19:30)
[2021-08-10 19:40] LABS: ANION GAP 15.1 mEq/L (7-13); CHLORIDE,CL 105 mmol/L (98-107); SODIUM,NA 141 mmol/L (136-145)
[2021-08-10 20:29] LABS: AMPHETAMINES,URINE NEGATIVE (NEGATIVE); BARBITURATES,URINE NEGATIVE (NEGATIVE); BENZODIAZEPINE,URINE NEGATIVE (NEGATIVE); MDMA (ECSTASY), URINE NEGATIVE (NEGATIVE); METHADONE,URINE POSITIVE (NEGATIVE); METHAMPHETAMINES,URINE NEGATIVE (NEGATIVE); OPIATES,URINE NEGATIVE (NEGATIVE); OXYCODONE,URINE NEGATIVE (NEGATIVE); PHENCYCLIDINE,URINE NEGATIVE (NEGATIVE); TCA,URINE NEGATIVE (NEGATIVE)
[2021-08-10] MEDS ORDERED: Haloperidol Lactate 5 MG/ML SDV IM ONE (20:42)
[2021-08-10] MEDS ORDERED: diphenhydrAMINE 50 MG/ML SDV IVPUSH ONE (20:43)
[2021-08-10] MEDS ORDERED: cefTRIAXone 1 GM Vial IM ONE (21:38)
[2021-08-10] MEDS ORDERED: Water For Injection, Sterile 20 ML ONE (21:49)
[2021-08-11 06:12] VITALS: BP 144/54; PULSE 73
== END 2021-08-11 06:19 | disposition home or self-care (01) ==
LOC: DL.ED 18:58
DX: T40.412A Poisoning by fentanyl or fentanyl analogs, intentional self-harm, initial encounter (principal); U07.1 COVID-19; N39.0 Urinary tract infection, site not specified; R31.9 Hematuria, unspecified; I10 Essential (primary) hypertension; K21.9 Gastro-esophageal reflux disease without esophagitis; Z72.0 Tobacco use; Z79.899 Other long term (current) drug therapy
CPT/HCPCS: 36415; 51702; 80053; 80305; 80307; 81001; 84484; 85025; 86140; 87086; 87635; 93005; 96372; 96374; 96375; 99285; J0696; J1200; J1630; J2060; U0002

== ENCOUNTER 2022-01-17 11:10 | Emergency (ER) | payer MEDICAID ==
[2022-01-17 12:14] LABS: CORONAVIRUS COVID-19 NAA NEGATIVE (NEGATIVE)
[2022-01-17 12:31] VITALS: BP 104/67; PULSE 66
== END 2022-01-17 13:06 | disposition home or self-care (01) ==
LOC: DL.ED 11:10
DX: Z00.00 Encounter for general adult medical examination without abnormal findings (principal); F17.210 Nicotine dependence, cigarettes, uncomplicated; I10 Essential (primary) hypertension; F41.9 Anxiety disorder, unspecified; F32.A Depression, unspecified; Z79.899 Other long term (current) drug therapy
CPT/HCPCS: 0240U; 99283

== ENCOUNTER 2022-10-23 21:57 | Emergency (ER) | payer MEDICAID ==
[2022-10-23 23:04] VITALS: BP 134/63; PULSE 73
[2022-10-23 23:29] LABS: CORONAVIRUS COVID-19 NAA NEGATIVE (NEGATIVE); RESPIRATORY SYNCYTIAL VIR NAA NEGATIVE (NEGATIVE)
== END 2022-10-23 23:56 | disposition home or self-care (01) ==
LOC: DL.ED 21:57
DX: J40 Bronchitis, not specified as acute or chronic (principal); I10 Essential (primary) hypertension; K21.9 Gastro-esophageal reflux disease without esophagitis; Z79.899 Other long term (current) drug therapy; Z86.16 Personal history of COVID-19; Z20.822 Contact with and (suspected) exposure to COVID-19
CPT/HCPCS: 0241U; 99284

== ENCOUNTER 2023-01-15 16:39 | Emergency (ER) | payer MEDICAID ==
[2023-01-15] MEDS ORDERED: Sodium Chloride 0.9% 10 ML Syringe FLUSH PRN (17:03)
[2023-01-15] MEDS ORDERED: methylPREDNISolone Sodium Succinate 125 MG/2 ML SDV IVPUSH ONE (17:04)
[2023-01-15] MEDS ORDERED: Albuterol/Ipratropium 3.0-0.5 MG/3 ML Neb Soln NEB ONE (17:04)
[2023-01-15 17:59] LABS: ANION GAP 13.8 mEq/L (7-13)
[2023-01-15 18:13] LABS: CORONAVIRUS COVID-19 NAA NEGATIVE (NEGATIVE); RESPIRATORY SYNCYTIAL VIR NAA NEGATIVE (NEGATIVE)
[2023-01-15] MEDS ORDERED: Sodium Chloride 0.9% 1,000 ML IV ONE (18:34)
[2023-01-15] MEDS ORDERED: Iopamidol 755 Mg/ML 100 ML Bottle IVPUSH ONE (18:34)
[2023-01-15 21:26] VITALS: BP 160/77; PULSE 87
== END 2023-01-15 20:48 | disposition home or self-care (01) ==
LOC: DL.ED 16:39
DX: J44.1 Chronic obstructive pulmonary disease with (acute) exacerbation (principal); K22.89 Other specified disease of esophagus; I10 Essential (primary) hypertension; K21.9 Gastro-esophageal reflux disease without esophagitis; Z20.822 Contact with and (suspected) exposure to COVID-19; Z86.16 Personal history of COVID-19; Z90.49 Acquired absence of other specified parts of digestive tract; Z79.899 Other long term (current) drug therapy
CPT/HCPCS: 0241U; 36415; 71045; 71260; 80053; 83605; 83880; 84484; 85025; 85379; 87040; 94640; 96361; 96374; 99284; 99285-25; J2930; J3490; J7030; J7620-GY; Q9967